=== PATIENT | female | born 1950 | race Caucasian/White ===

== ENCOUNTER 2018-05-09 07:03 | Day surgery (SDC) | payer MEDICARE, OTHER ==
[~2018-05-09] VITALS: Ht 170.2 cm; Wt 90.7 kg
[~2018-05-09 07:03] MED LIST: ASPI-999 PO; ATEN100T PO; CANA1TAB4 PO; DICY10CA12 PO; DIPH-757 PO; FENO145T37 PO; FISH1CAP15 PO; NIAC500T24 PO; OMEP20TA7 PO; POTA-51 PO; SIMV40TA4 PO; VNL75T PO
--- OUTSIDE RECORDS SUMMARY | 2018-05-09 07:09 | XMS REPORT ---
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 Name Role Phone Tre Churchill PCP Tre Churchill PreferredProvider Allergies and Adverse Reactions Name Reaction Notes NO KNOWN DRUG ALLERGIES Plan of Treatment Planned Activity Comments Planned Date Planned Time Plan/Goal Diagnostic Mammogram 01/01/2018 12:00 AM Medications Active Name Start Date Estimated Completion Date SIG Comments aspirin 325 mg oral tablet take 1 tablet by oral route daily Niacin Flush Free 750 mg oral capsule 04/03/2013 take 1 capsule by oral route daily potassium chloride 20 mEq oral tablet,ER particles/crystals 11/18/2013 TAKE 1 TABLET BY MOUTH ONCE A DAY Nexium 40 mg oral capsule,delayed release(DR/EC) 02/14/2014 TAKE 1 CAPSULE BY MOUTH ONCE A DAY atenolol 100 mg oral tablet 03/03/2014 TAKE 1 TABLET BY MOUTH ONCE A DAY simvastatin 40 mg oral tablet 04/06/2014 TAKE 1 TABLET BY MOUTH ONCE A DAY IN THE EVENING potassium chloride 20 mEq oral tablet,ER particles/crystals 06/16/2014 TAKE 1 TABLET BY MOUTH ONCE A DAY gabapentin 600 mg oral tablet 08/03/2014 TAKE 1 TABLET BY MOUTH TWO TIMES A DAY OneTouch Ultra Test miscellaneous strip 10/20/2014 Test glucose once a day Dx:250.00 OneTouch Ultra System Kit miscellaneous kit 10/20/2014 Test glucose once a day Dx:250.00 venlafaxine 75 mg oral capsule,extended release 24hr 11/09/2014 TAKE 1 CAPSULE BY MOUTH ONCE A DAY Jentadueto 2.5-850 mg oral tablet 12/10/2014 take 1 tablet by oral route 2 times per day with meals potassium chloride 20 mEq oral tablet,ER particles/crystals 01/26/2015 TAKE ONE TABLET BY MOUTH ONCE DAILY atenolol 100 mg oral tablet 04/23/2015 TAKE ONE TABLET BY MOUTH ONCE DAILY gabapentin 600 mg oral tablet 04/29/2015 TAKE ONE TABLET BY MOUTH THREE TIMES DAILY simvastatin 40 mg oral tablet 05/04/2015 TAKE ONE TABLET BY MOUTH ONCE DAILY IN THE EVENING venlafaxine 75 mg oral capsule,extended release 24hr 05/13/2015 TAKE ONE CAPSULE BY MOUTH ONCE DAILY Jentadueto 2.5-850 mg oral tablet 06/29/2015 TAKE ONE TABLET BY MOUTH TWICE DAILY WITH MEALS simvastatin 40 mg oral tablet 08/01/2015 TAKE ONE TABLET BY MOUTH ONCE DAILY IN THE EVENING Klor-Con M20 20 mEq oral tablet,ER particles/crystals 08/01/2015 TAKE ONE TABLET BY MOUTH ONCE DAILY venlafaxine 75 mg oral capsule,extended release 24hr 08/12/2015 TAKE ONE CAPSULE BY MOUTH ONCE DAILY Klor-Con M20 20 mEq oral tablet,ER particles/crystals 09/05/2015 TAKE ONE TABLET BY MOUTH ONCE DAILY simvastatin 40 mg oral tablet 09/05/2015 TAKE ONE TABLET BY MOUTH ONCE DAILY IN THE EVENING simvastatin 40 mg oral tablet 11/08/2015 TAKE ONE TABLET BY MOUTH ONCE DAILY IN THE EVENING Klor-Con M20 20 mEq oral tablet,ER particles/crystals 11/08/2015 TAKE ONE TABLET BY MOUTH ONCE DAILY venlafaxine 75 mg oral capsule,extended release 24hr 11/21/2015 TAKE ONE CAPSULE BY MOUTH ONCE DAILY Jentadueto 2.5-850 mg oral tablet 01/11/2016 TAKE ONE TABLET BY MOUTH TWICE DAILY WITH MEALS nortriptyline 25 mg oral capsule 01/18/2016 take 1 capsule (25 mg) by oral route at bedtime simvastatin 40 mg oral tablet 05/08/2016 TAKE ONE TABLET BY MOUTH ONCE DAILY IN THE EVENING Klor-Con M20 20 mEq oral tablet,ER particles/crystals 05/08/2016 TAKE ONE TABLET BY MOUTH ONCE DAILY nortriptyline 25 mg oral capsule 07/06/2016 TAKE ONE CAPSULE BY MOUTH AT BEDTIME Jentadueto 2.5-850 mg oral tablet 07/20/2016 TAKE ONE TABLET BY MOUTH TWICE DAILY WITH MEALS montelukast 10 mg oral tablet 02/27/2017 take 1 tablet (10 mg) by oral route once daily in the evening dicyclomine 10 mg oral capsule 02/27/2017 take 1 capsule by oral route 2 times a day as needed fenofibrate 150 mg oral capsule 05/17/2017 05/12/2018 take 1 capsule (150 mg) by oral route once daily with food for 90 days atenolol 100 mg oral tablet 07/03/2017 06/28/2018 TAKE ONE TABLET BY MOUTH ONCE DAILY nortriptyline 25 mg oral capsule 07/16/2017 01/07/2019 TAKE ONE CAPSULE BY MOUTH AT BEDTIME REHTOUCH ULTRA BLUE TEST STP 07/23/2017 03/15/2019 TEST GLUCOSE ONCE A DAY OneTouch Ultra Test miscellaneous strip 07/24/2017 Test glucose once a day Dx:e11.9 Fish Oil 360-1,200 mg oral capsule 01/04/2018 take 2 capsules by oral route 2 times a day Name Start Date Expiration Date SIG Comments Levaquin 750 mg oral tablet 02/04/2010 02/09/2010 take 1 po QD ketoconazole 2 % topical cream 08/18/2010 09/15/2010 apply to the affected area(s) by topical route once daily for 2 weeks Zithromax Z-Ramon 250 mg oral tablet 06/26/2011 07/01/2011 take 2 tablets (500 mg) by oral route once daily for 1 day then 1 tablet (250 mg) by oral route once daily for 4 days Zithromax Z-Ramon 250 mg oral tablet 08/14/2011 08/19/2011 take 2 tablets ( 500 mg) by oral route once daily for 1 day then 1 tablet (250 mg) by oral route once daily for 4 days simvastatin 40 mg oral tablet 03/26/2012 04/25/2012 TAKE 1 TABLET BY MOUTH ONCE A DAY IN THE EVENING Effexor XR 75 mg oral capsule,extended release 24hr 07/19/2012 08/18/2012 TAKE 1 CAPSULE BY MOUTH ONCE A DAY generic on list atenolol 100 mg oral tablet 02/17/2013 03/19/2013 TAKE 1 TABLET BY MOUTH ONCE A DAY Zithromax Z-Ramon 250 mg oral tablet 03/21/2013 03/26/2013 take 2 tablets (500 mg) by oral route once daily for 1 day then 1 tablet (250 mg) by oral route once daily for 4 days potassium chloride 20 mEq oral tablet,ER particles/crystals 04/12/20132012 TAKE 1 TABLET BY MOUTH ONCE A DAY gabapentin 600 mg oral tablet 06/17/2013 12/14/2013 take 1 tablet by oral route 2 times a day for 30 days metformin 500 mg oral tablet 07/10/2013 01/06/2014 take 2 tablets by oral route 2 times a day for 30 days Nexium 40 mg oral capsule,delayed release(DR/EC) 07/15/2013 08/14/2013 TAKE 1 CAPSULE BY MOUTH ONCE A DAY Trilipix 135 mg oral capsule,delayed release(DR/EC) 11/27/2013 05/26/2014 TAKE 1 CAPSULE BY MOUTH ONCE A DAY Accu-Chek Sita miscellaneous strip 05/14/2014 09/11/2014 Test glucose twice a week Dx: 250.00 gabapentin 600 mg oral tablet 10/20/2014 04/18/2015 take 1 tablet (600 mg) by oral route 3 times per day for 30 days fenofibrate 160 mg oral tablet 12/01/2014 11/26/2015 take 1 tablet (160 mg) by oral route once daily for 90 days gemfibrozil 600 mg oral tablet 02/10/2016 08/08/2016 take 1 tablet (600 mg) by oral route 2 times per day 30 minutes before morning and evening meal for 30 days fluconazole 100 mg oral tablet 11/22/2016 12/02/2016 take 1 tablet (100 mg) by oral route once daily for 5 days montelukast 10 mg oral tablet 07/01/2017 10/29/2017 TAKE ONE TABLET BY MOUTH ONCE DAILY IN THE EVENING dicyclomine 10 mg oral capsule 09/09/2017 09/09/2017 TAKE ONE CAPSULE BY MOUTH TWICE DAILY NEEDED Augmentin 500-125 mg oral tablet 09/09/2017 09/19/2017 take 1 tablet by oral route every 12 hours for 10 days Invokamet 150-1,000 mg oral tablet 09/16/2017 09/16/2017 TAKE ONE TABLET BY MOUTH TWICE DAILY WITH MEALS Klor-Con M20 20 mEq oral tablet,ER particles/crystals 11/12/2017 11/12/2017 TAKE ONE TABLET BY MOUTH ONCE DAILY venlafaxine 75 mg oral tablet 11/19/2017 11/19/2017 TAKE ONE TABLET BY MOUTH TWICE DAILY WITH FOOD simvastatin 40 mg oral tablet 11/19/2017 11/19/2017 TAKE ONE TABLET BY MOUTH ONCE DAILY IN THE EVENING Discontinued Name Start Date Discontinued Date SIG Comments Phenergan-Codeine 6.25-10 mg/5 mL oral syrup 02/04/2010 06/07/2010 take 5 milliliters by oral route every 6 hours as needed, not to exceed 30 mL in 24 hours loratadine 10 mg oral tablet 07/13/2011 take 1 tablet (10 mg) by oral route once daily Effexor 75 mg oral tablet 06/07/2010 10/03/2010 take 1 tablet by oral route daily Changed to sustained release formula metformin 500 mg oral tablet 06/30/2010 10/03/2010 take 1 tablet (500 mg) by oral route 2 times per day with morning and evening meals for 30 days Plan trial of diet modifications clonidine HCl 0.1 mg oral tablet 08/17/2010 11/07/2010 TAKE 1 TABLET BY MOUTH ONCE A DAY discontinued by Dr. Jeffries gemfibrozil 600 mg oral tablet 08/29/2010 10/03/2010 TAKE 1 TABLET BY MOUTH TWO TIMES A DAY 30 MIN. BEFORE MORNING & EVENING MEAL meclizine 12.5 mg oral tablet 09/13/2010 10/03/2010 take 1-2 tablets by oral route 3 times a day Medrol (Ramon) 4 mg oral tablets,dose pack 09/13/2010 10/03/2010 take as directed Zocor 40 mg oral tablet 09/23/2010 03/03/2011 take 1 tablet (40 mg) by oral route once daily in the evening for 30 days Duplicare medication on list Black Cohosh Oral 07/13/2011 one daily no longer taking Fish Oil 1,000 mg oral capsule 10/03/2010 03/26/2012 take 2 capsules by oral route 2 times a day Augmentin 875-125 mg oral tablet 11/07/2010 03/16/2011 take 1 tablet by oral route every 12 hours ibuprofen 600 mg oral tablet 11/07/2010 06/27/2012 take 1 tablet by oral route once a day (at bedtime) as needed benzoyl peroxide 10 % topical cleanser 04/18/2011 04/03/2013 wash the affected area(s) by topical route 2 times per day Medrol (Ramon) 4 mg oral tablets,dose pack 06/26/2011 07/13/2011 take as directed Nasonex 50 mcg/actuation nasal spray,non-aerosol 07/13/2011 06/27/2012 spray 2 sprays in each nostril by intranasal route once daily niacin 500 mg oral tablet extended release 24 hr 08/16/2011 03/26/2012 take 2 tablets by oral route once a day (in the evening) not refilled, dose increased Zofran ODT 4 mg oral tablet,disintegrating 01/23/2012 06/27/2012 dissolve 1- 2 tablets by oral route 3 times a day as needed nystatin-triamcinolone 100,000-0.1 unit/g-% topical cream 03/26/20122011 apply to affected area(s) by topical route 2 times a day Nasonex 50 mcg/actuation nasal spray,non-aerosol 07/01/2012 06/11/2014 spray 2 sprays in each nostril by intranasal route once daily Trilipix 135 mg oral capsule,delayed release(DR/EC) 09/20/2012 04/03/2013 TAKE 1 CAPSULE BY MOUTH ONCE A DAY nystatin-triamcinolone 100,000-0.1 unit/g-% topical cream 04/03/20132014 apply to the affected area(s) by topical route 2 times per day in the morning and evening Bydureon 2 mg subcutaneous suspension,extended rel recon 06/17/2013 07/10/2013 inject 2 mg once by subcutaneous route every 7 days Increased Metformin to 2000 mg a day Lovaza 1 gram oral capsule 07/10/2013 02/10/2014 take 2 capsules by oral route daily for 30 days "too expensive" lisinopril-hydrochlorothiazide 20-25 mg oral tablet 09/09/2013 02/27/2017 TAKE 1 TABLET BY MOUTH ONCE A DAY Pt states the medication made her Dizzy Trilipix 135 mg oral capsule,delayed release(DR/EC) 06/02/2014 12/01/2014 TAKE 1 CAPSULE BY MOUTH ONCE A DAY Invokana 100 mg oral tablet 06/10/2015 11/11/2015 TAKE ONE TABLET BY MOUTH ONCE DAILY BEFORE THE FIRST MEAL OF THE DAY lisinopril-hydrochlorothiazide 20-25 mg oral tablet 07/28/2015 TAKE 1 TABLET BY MOUTH ONCE A DAY gabapentin 600 mg oral tablet 10/25/2015 01/18/2016 TAKE ONE TABLET BY MOUTH THREE TIMES DAILY gabapentin 600 mg oral tablet 10/25/2015 01/18/2016 TAKE ONE TABLET BY MOUTH THREE TIMES DAILY $42.42 co-pay Farxiga 10 mg oral tablet 11/11/2015 12/10/2015 take 1 tablet (10 mg) by oral route once daily in the morning for 30 days fenofibrate 160 mg oral tablet 12/09/2015 01/18/2016 TAKE ONE TABLET BY MOUTH ONCE DAILY fenofibrate 160 mg oral tablet 12/09/2015 01/18/2016 TAKE ONE TABLET BY MOUTH ONCE DAILY $44 co-pay Jardiance 10 mg oral tablet 12/10/2015 01/18/2016 take 1 tablet (10 mg) by oral route once daily in the morning for 30 days Never filled rx Tricor 145 mg oral tablet 01/18/2016 02/10/2016 take 1 tablet (145 mg) by oral route once daily for 30 days Tricor 145 mg oral tablet 01/18/2016 02/10/2016 take 1 tablet (145 mg) by oral route once daily for 30 days Too expensive venlafaxine 75 mg oral capsule,extended release 24hr 06/05/2016 04/12/2017 TAKE ONE CAPSULE BY MOUTH ONCE DAILY venlafaxine 75 mg oral capsule,extended release 24hr 06/05/2016 04/12/2017 TAKE ONE CAPSULE BY MOUTH ONCE DAILY Switched to Immediate Release likely due to coverage problem gemfibrozil 600 mg oral tablet 08/09/2016 05/17/2017 TAKE ONE TABLET BY MOUTH 30 MINUTES BEFORE MORNING MEAL AND ONE TABLET 30 MINUTES BEFORE EVENING MEAL gemfibrozil 600 mg oral tablet 08/09/2016 05/17/2017 TAKE ONE TABLET BY MOUTH 30 MINUTES BEFORE MORNING MEAL AND ONE TABLET 30 MINUTES BEFORE EVENING MEAL Contraindicated with Simvastatin Invokana 100 mg oral tablet 08/29/2016 10/18/2016 take 1 tablet (100 mg) by oral route once daily before the first meal of the day for 30 days Invokana 100 mg oral tablet 08/29/2016 10/18/2016 take 1 tablet (100 mg) by oral route once daily before the first meal of the day for 30 days Vázquez ortega of $400 toward Medicare jonah mendez. Wants to try Janumet alone first. Jentadueto 2.5-850 mg oral tablet 09/25/2016 10/18/2016 TAKE ONE TABLET BY MOUTH TWICE DAILY WITH MEALS lisinopril-hydrochlorothiazide 20-25 mg oral tablet 10/08/2016 01/01/2018 TAKE ONE TABLET BY MOUTH ONCE DAILY nystatin 100,000 unit/gram topical cream 10/18/2016 11/22/2016 apply to the affected area(s) by topical route 3 times per day Janumet XR 50-1,000 mg oral tablet, ER multiphase 24 hr 10/18/2016 02/27/2017 take 2 tablets by oral route once daily with evening meal, swallowing whole. Problem List Description Status Onset Anemia Active Hypertension Active Menopausal Syndrome Active GERD Active Peripheral neuropathy Active 03/19/2011 Depression Active Hyperlipidemia Active Sleep Apnea, Obstructive Active Diabetes Mellitus, Type II Active Vital Signs Date Time BP-Sys(mm[Hg] BP-Barbara(mm[Hg]) HR(bpm) RR(rpm) Temp WT HT HC BMI BSA BMI Percentile O2 Sat(%) 01/01/2018 1:41:00 PM 130 mmHg 81 mmHg 104 bpm 18 rpm 97.4 F 197 lbs 67 in 30.85 kg/m2 2.06 m2 98 % 09/09/2017 1:55:00 PM 138 mmHg 64 mmHg 80 bpm 16 rpm 99.1 F 198 lbs 67 in 31.0109 kg/m 2.0605 m 94 % 02/27/2017 10:50:00 AM 128 mmHg 68 mmHg 80 bpm 18 rpm 97.2 F 190.5 lbs 67 in 29.84 kg/m2 2.02 m2 94 % 10/18/2016 8:02:00 AM 118 mmHg 68 mmHg 81 bpm 18 rpm 97.5 F 198 lbs 67 in 31.0109 kg/m 2.0605 m 100 % 01/18/2016 4:01:00 PM 122 mmHg 72 mmHg 83 bpm 18 rpm 98.4 F 206 lbs 67 in 32.26 kg/m2 2.10 m2 96 % 10/14/2015 8:32:00 AM 132 mmHg 70 mmHg 68 bpm 20 rpm 98.5 F 205 lbs 67 in 32.1072 kg/m 2.0966 m 98 % 10/20/2014 8:46:00 AM 136 mmHg 70 mmHg 68 bpm 16 rpm 98.3 F 212 lbs 67 in 33.20 kg/m2 2.13 m2 100 % 06/11/2014 8:54:00 AM 128 mmHg 70 mmHg 76 bpm 20 rpm 98.5 F 213 lbs 67 in 33.3602 kg/m 2.1371 m 100 % 05/29/2014 5:03:00 PM 132 mmHg 66 mmHg 73 bpm 18 rpm 98.4 F 210.25 lbs 67 in 32.93 kg/m2 2.12 m2 99 % 04/09/2014 3:26:00 PM 140 mmHg 78 mmHg 70 bpm 18 rpm 97.9 F 212.4 lbs 67 in 33.2662 kg/m 2.1341 m 97 % 02/10/2014 8:14:00 AM 132 mmHg 78 mmHg 79 bpm 20 rpm 98 F 213 lbs 67 in 33.36 kg/m2 2.14 m2 98 % 07/10/2013 8:23:00 AM 138 mmHg 62 mmHg 70 bpm 20 rpm 98.6 F 220 lbs 67 in 34.4565 kg/m 2.1719 m 96 % 06/17/2013 10:06:00 AM 128 mmHg 70 mmHg 60 bpm 18 rpm 98.1 F 217 lbs 67 in 33.99 kg/m2 2.16 m2 05/29/2013 10:50:00 AM 130 mmHg 72 mmHg 70 bpm 18 rpm 98.1 F 214 lbs 67 in 33.5168 kg/m 2.1421 m 04/03/2013 9:53:00 AM 134 mmHg 70 mmHg 78 bpm 20 rpm 98.1 F 215 lbs 67 in 33.67 kg/m2 2.15 m2 06/27/2012 9:39:00 AM 126 mmHg 62 mmHg 70 bpm 18 rpm 98 F 218 lbs 67 in 34.1433 kg/m 2.162 m 03/26/2012 10:17:00 AM 136 mmHg 70 mmHg 62 bpm 18 rpm 98.3 F 213 lbs 67 in 33.36 kg/m2 2.14 m2 08/10/2011 8:05:00 AM 130 mmHg 62 mmHg 78 bpm 18 rpm 98.2 F 213 lbs 67 in 33.3602 kg/m 2.1371 m 07/13/2011 2:22:00 PM 118 mmHg 60 mmHg 07/13/2011 2:22:00 PM 108 mmHg 50 mmHg 07/13/2011 2:22:00 PM 100 mmHg 50 mmHg 07/13/2011 2:20:00 PM 120 mmHg 60 mmHg 64 bpm 18 rpm 97 F 216 lbs 67 in 33.83 kg/m 2.15 m2 06/26/2011 3:38:00 PM 138 mmHg 80 mmHg 84 bpm 98.1 F 215 lbs 04/05/2011 2:38:00 PM 130 mmHg 70 mmHg 88 bpm 18 rpm 98 F 214 lbs 03/16/2011 3:50:00 PM 136 mmHg 72 mmHg 74 bpm 16 rpm 99 F 213 lbs 67 in 33.36 kg/m2 2.1371 m 11/07/2010 3:44:00 PM 132 mmHg 72 mmHg 74 bpm 18 rpm 98.9 F 208 lbs 10/03/2010 3:36:00 PM 144 mmHg 80 mmHg 74 bpm 18 rpm 97.6 F 212 lbs 09/13/2010 8:18:00 AM 140 mmHg 78 mmHg 80 bpm 16 rpm 97.7 F 211.125 lbs 09/13/2010 8:18:00 AM 160 mmHg 84 mmHg 09/13/2010 8:18:00 AM 150 mmHg 80 mmHg 09/13/2010 8:18:00 AM 150 mmHg 76 mmHg 08/02/2010 9:36:00 AM 132 mmHg 78 mmHg 64 bpm 16 rpm 98.2 F 210.375 lbs 06/30/2010 9:26:00 AM 140 mmHg 72 mmHg 76 bpm 20 rpm 98.1 F 207.5 lbs 06/07/2010 8:23:00 AM 136 mmHg 66 mmHg 68 bpm 20 rpm 97.8 F 210 lbs 02/04/2010 8:22:00 AM 148 mmHg 80 mmHg 80 bpm 20 rpm 98.3 F 210 lbs 01/17/2010 3:04:00 PM 158 mmHg 80 mmHg 91 bpm 20 rpm 98.2 F 211.25 lbs 67 in 33.09 kg/m2 2.1283 m 96 % 10/15/2009 3:29:00 PM 148 mmHg 78 mmHg 76 bpm 16 rpm 97.3 F 212.25 lbs 67 in 33.2427 kg/m 2.13 m2 97 % Social History Name Description Comments Denies illicit substance abuse denies alcohol use Attended some college switch [employer] paperboard boxes Active but no 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 Tobacco Former smoker stopped 05/23/10 History of Procedures Date Ordered Description Order Status 09/21/2015 12:00 AM GLYCOSYLATED HEMOGLOBIN TEST Reviewed 09/21/2015 12:00 AM LIPID PANEL Reviewed 09/21/2015 12:00 AM COMPLETE CBC W/AUTO DIFF WBC Reviewed 09/21/2015 12:00 AM COMPREHEN METABOLIC PANEL Reviewed 09/21/2015 12:00 AM MICROALBUMIN QUANTITATIVE Reviewed 08/10/2011 12:00 AM ELECTROCARDIOGRAM COMPLETE Reviewed 08/10/2011 12:00 AM COMPREHEN METABOLIC PANEL Reviewed 08/10/2011 12:00 AM LIPID PANEL Reviewed 08/10/2011 12:00 AM GLYCOSYLATED HEMOGLOBIN TEST Reviewed 08/10/2011 12:00 AM MICROALBUMIN SEMIQUANT Reviewed 10/09/2016 12:00 AM GLYCOSYLATED HEMOGLOBIN TEST Reviewed 10/09/2016 12:00 AM LIPID PANEL Reviewed 10/09/2016 12:00 AM COMPLETE CBC W/AUTO DIFF WBC Reviewed 10/09/2016 12:00 AM COMPREHEN METABOLIC PANEL Reviewed 10/09/2016 12:00 AM MICROALBUMIN QUANTITATIVE Reviewed 10/09/2016 12:00 AM VITAMIN B-12 Reviewed 03/12/2012 12:00 AM GLYCOSYLATED HEMOGLOBIN TEST Reviewed 03/12/2012 12:00 AM LIPID PANEL Reviewed 03/12/2012 12:00 AM COMPLETE CBC W/AUTO DIFF WBC Reviewed 03/12/2012 12:00 AM COMPREHEN METABOLIC PANEL Reviewed 01/17/2010 12:00 AM ELECTROCARDIOGRAM COMPLETE Reviewed 01/03/2018 12:00 AM COMPLETE CBC W/AUTO DIFF WBC Reviewed 01/03/2018 12:00 AM COMPREHEN METABOLIC PANEL Reviewed 01/03/2018 12:00 AM GLYCOSYLATED HEMOGLOBIN TEST Reviewed 01/03/2018 12:00 AM VITAMIN B-12 Reviewed 01/03/2018 12:00 AM ALBUMIN URINE MICROALBUMIN QUANTIATIVE Reviewed 01/03/2018 12:00 AM LIPID PANEL Reviewed 01/01/2018 12:00 AM Breast ultrasound Reviewed 01/11/2018 12:00 AM BX BREAST 1ST LESION US IMAG Reviewed 03/27/2013 12:00 AM GLYCOSYLATED HEMOGLOBIN TEST Reviewed 03/27/2013 12:00 AM LIPID PANEL Reviewed 03/27/2013 12:00 AM COMPLETE CBC W/AUTO DIFF WBC Reviewed 03/27/2013 12:00 AM COMPREHEN METABOLIC PANEL Reviewed 10/15/2009 12:00 AM THER/PROPH/DIAG INJ SC/IM Reviewed 10/15/2009 12:00 AM Kenalog 40 Mg Im-[facility] [place]#[id number] Reviewed 02/03/2014 12:00 AM GLYCOSYLATED HEMOGLOBIN TEST Reviewed 02/03/2014 12:00 AM LIPID PANEL Reviewed 02/03/2014 12:00 AM COMPLETE CBC W/AUTO DIFF WBC Reviewed 02/03/2014 12:00 AM COMPREHEN METABOLIC PANEL Reviewed 08/12/2014 12:00 AM LIPID PANEL Reviewed 04/09/2014 12:00 AM COMPREHEN METABOLIC PANEL Reviewed 04/09/2014 12:00 AM COMPLETE CBC W/AUTO DIFF WBC Reviewed 04/09/2014 12:00 AM URINALYSIS AUTO W/SCOPE Reviewed 06/07/2010 12:00 AM COMPREHEN METABOLIC PANEL Reviewed 06/07/2010 12:00 AM LIPID PANEL Reviewed 06/07/2010 12:00 AM COMPLETE CBC W/AUTO DIFF WBC Reviewed 06/22/2010 12:00 AM GLUCOSE TOLERANCE TEST (GTT) Reviewed 06/22/2010 12:00 AM GLYCOSYLATED HEMOGLOBIN TEST Reviewed 06/22/2010 12:00 AM LIPID PANEL Reviewed 09/13/2010 12:00 AM COMPREHEN METABOLIC PANEL Reviewed 09/13/2010 12:00 AM LIPID PANEL Reviewed 09/13/2010 12:00 AM GLYCOSYLATED HEMOGLOBIN TEST Reviewed 09/23/2010 12:00 AM Blood Pressure Check-no charge Reviewed 10/18/2010 12:00 AM SLEEP STUDY ATTENDED Reviewed 11/07/2010 12:00 AM VITAMIN B-12 Reviewed 11/10/2010 12:00 AM SLEEP STUDY ATTENDED Reviewed 10/20/2014 12:00 AM COMPREHEN METABOLIC PANEL Reviewed 10/20/2014 12:00 AM LIPID PANEL Reviewed 10/20/2014 12:00 AM GLYCOSYLATED HEMOGLOBIN TEST Reviewed 10/20/2014 12:00 AM COMPLETE CBC W/AUTO DIFF WBC Reviewed 03/19/2011 12:00 AM GLYCOSYLATED HEMOGLOBIN TEST Reviewed 03/19/2011 12:00 AM MICROALBUMIN QUANTITATIVE Reviewed 03/16/2011 12:00 AM COMPREHEN METABOLIC PANEL Reviewed 03/16/2011 12:00 AM LIPID PANEL Reviewed 03/16/2011 12:00 AM GLYCOSYLATED HEMOGLOBIN TEST Reviewed 03/16/2011 12:00 AM MICROALBUMIN SEMIQUANT Reviewed 04/05/2011 12:00 AM BIOPSY SKIN LESION Reviewed 04/05/2011 12:00 AM BIOPSY SKIN ADD-ON Reviewed Results Summary Date and Description Results 06/27/2010 8:20 AM GLYCOHEMOGLOBIN A1C 6.30 %RECHECKED A1C AND FBS 09/13/2010 9:16 AM TRIGLYCERIDES 308.0 mg/dLCHOLESTEROL 184.0 mg/dLHDL 27.0 mg/ dLTOT CHOL/HDL 6.8 LDL (CALC) 95.0 mg/dLGLYCOHEMOGLOBIN A1C 5.80 %GLUCOSE 123.0 mg/dLSODIUM 139.0 mmol/LPOTASSIUM 4.0 mmol/LCHLORIDE 103.0 mmol/LCO2 22.0 mmol/ LBUN 17.0 mg/dLCREATININE 0.80 mg/dLSGOT/AST 34.0 IU/LSGPT/ALT 32.0 IU/LALK PHOS 89.0 IU/LTOTAL PROTEIN 7.20 g/dLALBUMIN 4.80 g/dLTOTAL BILI 0.50 mg/ dLCALCIUM 10.0 mg/dLAGE 60 GFR NonAA 73 GFR AA 88 eGFR >60 mL/min/1.73 m2eGFR AA * >60 11/07/2010 4:27 PM VITAMIN B12 570.0 pg/mL 01/03/2018 10:20 AM TRIGLYCERIDES 239.0 mg/dLCHOLESTEROL 154.0 mg/dLHDL 28.0 mg/ dLTOT CHOL/HDL 5.5 LDL (CALC) 78.0 mg/dLWBC 7.7 RBC 5.23 HGB 12.40 g/dLHCT 41.40 %MCV 79.0 fLMCH 23.70 pgMCHC 30.0 g/dLRDW SD 49 RDW CV 17.50 %MPV 9.50 fLPLT 286 NRBC# 0.00 NRBC% 0.0 %NEUT 51.90 %%LYMP 34.0 %%MONO 9.10 %%EOS 3.10 %% BASO 1.40 %#NEUT 3.99 #LYMP 2.62 #MONO 0.70 #EOS 0.24 #BASO 0.11 MANUAL DIFF NOT IND GLUCOSE 136.0 mg/dLSODIUM 141.0 mmol/LPOTASSIUM 4.0 mmol/LCHLORIDE 106.0 mmol/LCO2 24.0 mmol/LBUN 17.0 mg/dLCREATININE 0.80 mg/dLSGOT/AST 35.0 IU/ LSGPT/ALT 30.0 IU/LALK PHOS 118.0 IU/LTOTAL PROTEIN 7.40 g/dLALBUMIN 4.30 g/ dLTOTAL BILI 0.60 mg/dLCALCIUM 9.90 mg/dLAGE 67 GFR NonAA 72 GFR AA 87 eGFR >60 mL/min/1.73meGFR AA* >60 MICROALBUMIN UR 10.0 ug/mLVITAMIN B12 354.0 pg/mLHGB A1C 6.20 %Est Avg Glucose 131.2 mg/dL History Of Immunizations Name Date Admin Mfg Name Mfg Code Trade Name Lot# Route Inj Vis Given Vis Pub CVX Tdap 01/17/2016 Not Entered NE ADACEL Not Entered Not Entered 201511/05/2018 115 Pneumococcal 01/26/2016 Not Entered NE Pneumovax 23 Not Entered Not Entered 01/26/2016 11/05/2018 33 Influenza 07/20/2016 Not Entered NE Fluzone High-Dose Intramuscular Left Arm 11/05/2018 11/05/2018 141 Pneumococcal 02/01/2017 Not Entered NE Prevnar 13 Not Entered Not Entered 11/05/2018 11/05/2018 133 Influenza 07/24/2017 Not Entered NE Fluzone High-Dose Not Entered Not Entered 11/05/2018 11/05/2018 135 History of Past Illness Name Date of Onset Comments Cough Oct 15 2009 4:00PM Acute Pharyngitis Oct 15 2009 4:00PM Pneumonia Oct 15 2009 4:00PM Chronic Obstructive Pulmonary Disease, Decompensated Oct 15 2009 4:00PM Hypertension Anemia Menopausal Syndrome GERD Preoperative Examination Jan 17 2010 2:40PM Bronchitis, Acute Feb 04 2010 8:26AM Sleep Apnea, Obstructive moderate Peripheral neuropathy 03/19/2011 Depression Hyperlipidemia Diabetes Mellitus, Type II tests 1-2 times per week Benign Essential Hypertension Jun 07 2010 8:26AM Hyperlipidemia Jun 07 2010 8:26AM Gastroesophageal Reflux Jun 07 2010 8:26AM Anemia Jun 07 2010 8:26AM Depressive Disorder Jun 07 2010 8:26AM Menopausal Syndrome Jun 07 2010 8:26AM Hyperglycemia Jun 22 2010 11:11AM Hyperlipidemia, unspecified Jun 22 2010 11:11AM Diabetes Mellitus, Type II Jun 30 2010 9:27AM Hyperlipidemia, unspecified Jun 30 2010 9:27AM Hypertension, Benign Essential Jun 30 2010 9:27AM Candidiasis Of Skin Aug 02 2010 9:39AM Benign paroxysmal positional vertigo Sep 13 2010 8:24AM Hyperlipidemia, Mixed Sep 13 2010 8:24AM Hyperglycemia Sep 13 2010 8:24AM Hypertension, Benign Essential Sep 23 2010 3:41PM Hyperlipidemia Oct 03 2010 3:37PM Diabetes Mellitus, Type II Oct 03 2010 3:37PM Vertigo Oct 03 2010 3:37PM Sleep disturbance Oct 03 2010 3:37PM Peripheral Neuropathy Nov 07 2010 3:44PM Vertigo Nov 07 2010 3:44PM Sleep disturbance Nov 07 2010 3:44PM Sinusitis, Chronic Nov 07 2010 3:44PM Pain in foot, Bilateral Nov 07 2010 3:44PM Diabetes Mellitus, Type II Mar 16 2011 3:50PM Hypertension Mar 16 2011 3:50PM Peripheral Neuropathy Mar 16 2011 3:50PM 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 05 2011 2:39PM Upper Respiratory Infections Jun 26 2011 3:38PM Eustachian Tube Dysfunction Jun 26 2011 3:38PM Diabetes Mellitus, Type II Jul 13 2011 2:22PM Eustachian Tube Dysfunction, Bilateral Jul 13 2011 2:22PM Diabetes Mellitus, Type II Aug 10 2011 8:02AM Essential Hypertension Aug 10 2011 8:02AM Hyperlipidemia, Mixed Aug 10 2011 8:02AM Hyperlipidemia Mar 12 2012 11:33AM Anemia Mar 12 2012 11:33AM Hypertension Mar 12 2012 11:33AM Diabetes Mellitus, Type II Mar 12 2012 11:33AM Diabetes Mellitus, Type II Mar 26 2012 10:20AM Essential Hypertension Mar 26 2012 10:20AM Hyperlipidemia, Mixed Mar 26 2012 10:20AM Tinea Pedis Mar 26 2012 10:20AM Diabetes Mellitus, Type II Jun 27 2012 9:41AM Essential Hypertension Jun 27 2012 9:41AM Hyperlipidemia, Mixed Jun 27 2012 9:41AM Neuropathy, Peripheral Jun 27 2012 9:41AM Hyperlipidemia Mar 27 2013 11:21AM Anemia Mar 27 2013 11:21AM Hypertension Mar 27 2013 11:21AM Diabetes Mellitus, Type II Mar 27 2013 11:21AM Diabetes Mellitus, Type II Apr 03 2013 9:55AM Essential Hypertension Apr 03 2013 9:55AM Hyperlipidemia, Mixed Apr 03 2013 9:55AM Neuropathy, Peripheral Apr 03 2013 9:55AM Diabetes Mellitus, Type II May 29 2013 10:53AM Polyneuropathy in diabetes May 29 2013 10:53AM Diabetes Mellitus, Type II Jun 17 2013 10:09AM Diabetes Mellitus, Type II Jul 10 2013 8:23AM Anemia Jul 10 2013 8:23AM Hypertension Jul 10 2013 8:23AM Hyperlipidemia Jul 10 2013 8:23AM Insect Bite without infection Jul 10 2013 8:23AM Hyperlipidemia Feb 03 2014 5:01PM Anemia Feb 03 2014 5:01PM Hypertension Feb 03 2014 5:01PM Diabetes Mellitus, Type II Feb 03 2014 5:01PM Diabetes Mellitus, Type II Feb 10 2014 8:16AM Anemia Feb 10 2014 8:16AM Hypertension Feb 10 2014 8:16AM Hyperlipidemia Feb 10 2014 8:16AM Hypertension Apr 09 2014 3:28PM Diabetes Mellitus, Type II Apr 09 2014 3:28PM Anemia Apr 09 2014 3:28PM Altered mental status Apr 09 2014 3:28PM 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 5: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 Diabetes Mellitus, Type II Jun 11 2014 8:57AM Anemia Oct 20 2014 8:48AM Hypertension Oct 20 2014 8:48AM Hyperlipidemia Oct 20 2014 8:48AM Diabetes Mellitus, Type II Oct 20 2014 8:48AM Hyperlipidemia Sep 21 2015 11:50AM Anemia Sep 21 2015 11:50AM Hypertension Sep 21 2015 11:50AM Diabetes Mellitus, Type II Sep 21 2015 11:50AM Anemia Oct 14 2015 8:34AM Hypertension Oct 14 2015 8:34AM Hyperlipidemia Oct 14 2015 8:34AM Diabetes Mellitus, Type II Oct 14 2015 8:34AM Peripheral neuropathy Jan 18 2016 4:06PM Anemia Jan 18 2016 4:06PM Hypertension Jan 18 2016 4:06PM Depression Jan 18 2016 4:06PM Hyperlipidemia Jan 18 2016 4:06PM Diabetes Mellitus, Type II Jan 18 2016 4:06PM Hyperlipidemia Oct 09 2016 4:52PM Anemia Oct 09 2016 4:52PM Hypertension Oct 09 2016 4:52PM Diabetes Mellitus, Type II Oct 09 2016 4:52PM Essential Hypertension Oct 18 2016 8:05AM Diabetes Mellitus, Type II Oct 18 2016 8:05AM Anemia Oct 18 2016 8:05AM Hyperlipidemia, Mixed Oct 18 2016 8:05AM Cutaneous candidiasis Oct 18 2016 8:05AM Uncontrolled type 2 diabetes mellitus Feb 27 2017 11:00AM Excessive flatus Feb 27 2017 11:00AM Upper respiratory infection Feb 27 2017 11:00AM Pharyngitis Sep 09 2017 1:57PM Otitis media Sep 09 2017 1:57PM Left Breast Mass Jan 01 2018 1:43PM Anemia Jan 03 2018 9:52AM Hypertension Jan 03 2018 9:52AM Hyperlipidemia Jan 03 2018 9:52AM Diabetes Mellitus, Type II Jan 03 2018 9:52AM Anemia Jan 01 2018 1:43PM Hypertension Jan 01 2018 1:43PM Breast mass, left Jan 11 2018 11:39AM Payers Insurance Name Company Name Plan Name Plan Number Policy Number Policy Group Number Start Date Medicare RHC Medicare RHC [id number] N/A Cigna Medicare Supplement Cigna Medicare Supplement [id number] N/A BCBS [facility] [id number] Sunday, 2010 Medicare Part A Medicare - Lab/Xray [id number] N/A History of Encounters Visit Date Visit Type Provider 01/01/2018 Office visit Tre Churchill DO 09/09/2017 Office visit Cole De Leon NP 02/27/2017 Office visit Tre Zhao DO 10/18/2016 Office visit Tre Zhao DO 01/18/2016 Office visit Tre Zhao DO 10/14/2015 Office visit Tre Zhao DO 10/20/2014 Office visit Tre Zhao DO 06/11/2014 Office visit Tre Zhao DO 05/29/2014 Office visit Rom Barrett PA-C 04/09/2014 Office visit Tre Zhao DO 02/10/2014 Office visit Tre Zhao DO 07/10/[address] Zhao DO 06/17/2013 Office visit Tre Zhao DO 05/29/2013 Office visit Tre Zhao DO 04/03/2013 Office visit Tre Zhao DO 06/27/2012 Office visit Tre Zhao DO 03/26/2012 Office visit Tre Zhao DO 08/10/2011 [facility] William Jeffries MD 08/10/2011 Office visit Tre Zhao DO 07/13/2011 Office visit Tre Zhao DO 06/26/2011 Office visit Erna Garza APRN 04/05/2011 Procedures Moe Norris MD 03/16/2011 Office visit Tre Zhao DO 11/07/2010 Office visit Tre Zaho DO 10/03/2010 Office visit Tre Zhao DO 09/23/2010 Nurse visit Lynette HEART 09/13/2010 Office visit Lynette HEART 08/02/2010 Office visit Lynette HEART 06/30/2010 Office visit Lynette HEART 06/07/2010 Office visit Lynette HEART 02/04/2010 Office visit Steff HEART 01/17/2010 Office visit Moe Moon DO 10/15/2009 Office visit Moe Moon DO 08/09/2009 Office visit Moe Moon DO 07/29/2009 Office visit Moe Moon DO
--- OUTSIDE RECORDS SUMMARY | 2018-05-09 07:10 | XMS REPORT ---
Author Author Tre Churchill [facility] Address [address] [place], [place] [id number] Care Team Providers Care Health And Safety Technician Name Role Phone Tre Churchill PCP Unavailable Tre Churchill PreferredProvider Unavailable Allergies and Adverse Reactions Name Reaction Notes NO KNOWN DRUG ALLERGIES Plan of Treatment Not available. Medications Active Name Start Date Estimated Completion [...] WITH MEALS lisinopril-hydrochlorothiazide 20-25 mg oral tablet 07/28/2015 TAKE 1 TABLET BY MOUTH ONCE A DAY simvastatin 40 mg oral tablet 08/01/2015 TAKE [...] BY MOUTH ONCE DAILY IN THE EVENING Fish Oil [place] 3-6-9 300-1,000 mg oral capsule,delayed release(DR/EC) 2014 take 3 capsules by oral route daily simvastatin 40 mg oral tablet 11/08/2015 TAKE [...] (25 mg) by oral route at bedtime atenolol 100 mg oral tablet 05/02/2016 TAKE ONE TABLET BY MOUTH ONCE DAILY simvastatin 40 mg oral tablet 05/08/2016 TAKE ONE TABLET BY MOUTH ONCE DAILY IN THE EVENING Klor-Con M20 20 mEq oral tablet,ER particles/crystals 05/08/2016 TAKE ONE TABLET BY MOUTH ONCE DAILY OneTouch Ultra Test miscellaneous strip 05/27/2016 TEST GLUCOSE ONCE A DAY nortriptyline 25 mg oral capsule 07/06/2016 TAKE ONE CAPSULE BY MOUTH AT BEDTIME Jentadueto 2.5-850 mg oral tablet 07/20/2016 TAKE ONE TABLET BY MOUTH TWICE DAILY WITH MEALS gemfibrozil 600 mg oral tablet 08/09/2016 TAKE ONE TABLET BY MOUTH 30 MINUTES BEFORE MORNING MEAL AND ONE TABLET 30 MINUTES BEFORE EVENING MEAL lisinopril-hydrochlorothiazide 20-25 mg oral tablet 10/08/2016 TAKE ONE TABLET BY MOUTH ONCE DAILY simvastatin 40 mg oral tablet 11/12/2016 TAKE ONE TABLET BY MOUTH ONCE DAILY IN THE EVENING Klor-Con M20 20 mEq oral tablet,ER particles/crystals 11/12/2016 TAKE ONE TABLET BY MOUTH ONCE DAILY nortriptyline 25 mg oral capsule 01/11/2017 TAKE ONE CAPSULE BY MOUTH AT BEDTIME Invokamet 150-1,000 mg oral tablet 02/27/2017 08/26/2017 take 1 tablet by oral route 2 times per day with meals for 30 days montelukast 10 mg oral tablet 02/27/2017 take 1 tablet (10 mg) by oral route once daily in the evening dicyclomine 10 mg oral capsule 02/27/2017 take 1 capsule by oral route 2 times a day as needed montelukast 10 mg oral tablet 03/17/2017 take 1 tablet (10 mg) by oral route once daily in the evening venlafaxine 75 mg oral tablet 04/12/2017 10/09/2017 take 1 tablet (75 mg) by oral route 2 times per day with food for 30 days Name Start Date Expiration Date SIG Comments [...] oral route once daily for 5 days Discontinued Name Start Date Discontinued Date SIG [...] daily in the evening for 30 days [facility] [place] Oral 07/13/2011 [...] BEFORE THE FIRST MEAL OF THE DAY gabapentin 600 mg oral tablet 10/25/2015 [...] Immediate Release likely due to coverage problem Invokana 100 mg oral tablet 08/29/2016 10/18/2016 take 1 tablet (100 mg) by oral route once daily before the first meal of the day for 30 days Invokana 100 mg oral tablet 08/29/2016 10/18/2016 take 1 tablet (100 mg) by oral route once daily before the first meal of the day for 30 days Vázquez ortega of $400 toward Medicare donut hole. Wants to try Janumet alone first. Jentadueto 2.5-850 mg oral tablet 09/25/2016 10/18/2016 TAKE ONE TABLET BY MOUTH TWICE DAILY WITH MEALS nystatin 100,000 unit/gram topical cream 10/18/2016 11/22/2016 apply to the affected area(s) by topical route 3 times per day Janumet XR 50-1,000 mg oral tablet, ER multiphase 24 hr 10/18/2016 02/27/2017 take 2 tablets by oral route once daily with evening meal, swallowing whole. 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 Tobacco Former [...] Reviewed 01/17/2010 12:00 AM ELECTROCARDIOGRAM COMPLETE Reviewed 03/27/2013 12:00 AM GLYCOSYLATED HEMOGLOBIN TEST Reviewed 03/27/2013 12:00 AM LIPID PANEL Reviewed 03/27/2013 12:00 AM COMPLETE CBC W/AUTO DIFF WBC Reviewed 03/27/2013 12:00 AM COMPREHEN METABOLIC PANEL Reviewed 10/15/2009 12:00 AM THER/PROPH/DIAG INJ SC/IM Reviewed 10/15/2009 12:00 AM Kenalog 40 Mg Im-[facility]#[id number] Reviewed 02/03/2014 12:00 AM GLYCOSYLATED HEMOGLOBIN TEST [...] Reviewed Results Summary Date and Description Results 06/17/2009 12:00 AM Cholest Cry Stone Ql IR 197.0 %LDLc SerPl-mCnc 126.0 mg/ dLHDLc SerPl-mCnc 28.0 mg/dLTrigl SerPl-mCnc 275.0 mg/dLGlucose SerPl-mCnc 114.0 mg/dL 08/02/2009 12:00 AM Mammogram -Women over 40 Normal 10/14/2009 5:30 PM HIV1+2 Ab Ser Ql no risk Aspirin reccommended Reccommended 10/15/2009 3:48 PM Pap Smear Declined 10/15/2009 3:49 PM Depression Has Depression 10/15/2009 3:49 PM Colonoscopy-Women and Men over 50 Declined 11/16/2009 12:00 AM Pap Smear Negative Dexa Bone Scan Done 06/27/2010 8:20 AM TRIGLYCERIDES 394.0 mg/dLCHOLESTEROL 213.0 mg/dLHDL 24.0 mg/ dLTOT CHOL/HDL 8.9 LDL (CALC) 110.0 mg/dLGLYCOHEMOGLOBIN A1C 6.30 %RECHECKED A1C AND FBS 09/13/2010 [...] 11/07/2010 4:27 PM VITAMIN B12 570.0 pg/mL History Of Immunizations Name Date Admin Mfg Name Mfg Code Trade Name Lot# Route Inj Vis Given Vis Pub CVX Tdap 01/17/2016 Not Entered NE ADACEL Not Entered Not Entered 201511/05/2016 115 Pneumococcal 01/26/2016 Not Entered NE Pneumovax 23 Not Entered Not Entered 01/26/2016 11/05/2016 33 Influenza 07/20/2016 Not Entered NE Fluzone High-Dose Intramuscular Left Arm 11/05/2016 11/05/2016 141 Pneumococcal 02/01/2017 Not Entered NE Prevnar 13 Not Entered Not Entered 11/05/2016 11/05/2016 133 History of Past Illness Name Date of Onset Comments Cough Oct 15 2009 4:00PM Acute Pharyngitis Oct 15 2009 4:00PM Pneumonia Oct 15 2009 4:00PM Chronic Obstructive Pulmonary Disease, Decompensated Oct 15 2009 4:00PM Hypertension Anemia Menopausal Syndrome GERD Preoperative Examination Jan 17 2010 2:40PM Bronchitis, Acute Feb 04 2010 8:26AM Sleep Apnea, Obstructive moderate Peripheral Neuropathy 03/19/2011 Depression Hyperlipidemia Diabetes Mellitus, Type II [...] Upper respiratory infection Feb 27 2017 11:00AM Payers Insurance Name Company Name Plan Name Plan Number Policy Number Policy Group Number Start Date Medicare RHC Medicare RHC [id number] N/A Medicare Part A Medicare - Lab/Xray [id number] N/A [id number] Sunday, October 03, 2010 History of Encounters Visit Date Visit Type Provider 02/27/2017 Office visit Tre Churchill DO 10/18/2016 Office visit Tre Churchill DO 01/18/2016 Office visit Tre Churchill DO 10/14/2015 Office visit Tre Churchill DO 10/20/2014 Office visit Tre Churchill DO 06/11/2014 Office visit Tre Churchill DO 05/29/2014 Office visit Rom Barrett PA-C 04/09/2014 Office visit Tre Churchill DO 02/10/2014 Office visit Tre Churchill DO 07/10/2013 Office visit Tre Churchill DO 06/17/2013 Office visit Tre Churchill DO 05/29/2013 Office visit Tre Churchill DO 04/03/2013 Office visit Tre Churchill DO 06/27/2012 Office visit Tre Churchill DO 03/26/2012 Office visit Tre Churchill DO 08/10/2011 Hospital William Jeffries MD 08/10/2011 Office visit Tre Churchill DO 07/13/2011 Office visit Tre Churchill DO 06/26/2011 Office visit Erna Garza APRN 04/05/2011 Procedures Moe Norris MD 03/16/2011 Office visit Tre Churchill DO 11/07/2010 Office visit Tre Churchill DO 10/03/2010 Office visit Tre Churchill DO 09/23/2010 Nurse visit Lynette HEART 09/13/2010 Office visit Lynette HEART 08/02/2010 Office visit Lynette HEART 06/30/2010 Office visit Lynette HEART 06/07/2010 Office visit Lynette HEART 02/04/2010 Office visit Steff EHART 01/17/2010 Office visit Moe Moon DO 10/15/2009 Office visit Moe Moon DO 08/09/2009 Office visit Moe Moon DO 07/29/2009 Office visit Moe Moon DO
--- OUTSIDE RECORDS SUMMARY | 2018-05-09 07:11 | XMS REPORT ---
Author Author Tre Churchill [facility] Address [address] [place], [place] [id number] Care Team Providers Care Coat Padder Name Role Phone Tre Churchill PCP Unavailable Allergies and Adverse Reactions Name Reaction Notes NO KNOWN DRUG ALLERGIES Plan of Treatment Planned Activity Comments Planned Date Planned Time Plan/Goal COMPLETE CBC W/AUTO DIFF WBC 03/12/2012 12:00 AM COMPREHEN METABOLIC PANEL 03/12/2012 12:00 AM GLYCOSYLATED HEMOGLOBIN TEST 06/30/2013 12:00 AM MICROALBUMIN QUANTITATIVE 06/30/2013 12:00 AM COMPREHEN METABOLIC PANEL 06/30/2013 12:00 AM GLYCOSYLATED HEMOGLOBIN TEST 06/17/2013 12:00 AM MICROALBUMIN QUANTITATIVE 06/17/2013 12:00 AM GLYCOSYLATED HEMOGLOBIN TEST 07/10/2013 12:00 AM MICROALBUMIN QUANTITATIVE 07/10/2013 12:00 AM COMPLETE CBC W/AUTO DIFF WBC 02/03/2014 12:00 AM COMPREHEN METABOLIC PANEL 08/12/2014 12:00 AM GLYCOSYLATED HEMOGLOBIN TEST 08/12/2014 12:00 AM COMPLETE CBC W/AUTO DIFF WBC 08/12/2014 12:00 AM Medications Active Name Start Date [...] 1 CAPSULE BY MOUTH ONCE A DAY fenofibrate 160 mg oral tablet 12/01/2014 11/26/2015 take 1 tablet (160 mg) by oral route once daily for 90 days Jentadueto 2.5-850 mg oral tablet 12/10/2014 take [...] ONCE DAILY IN THE EVENING Fish Oil [place] 3-6-9 300-1,000 mg oral capsule,delayed release(DR/EC) 2014 take 3 capsules by oral route daily gabapentin 600 mg oral tablet 10/25/2015 TAKE ONE TABLET BY MOUTH THREE TIMES DAILY simvastatin 40 mg oral tablet 11/08/2015 TAKE ONE TABLET BY MOUTH ONCE DAILY IN THE EVENING Klor-Con M20 20 mEq oral tablet,ER particles/crystals 11/08/2015 TAKE ONE TABLET BY MOUTH ONCE DAILY Farxiga 10 mg oral tablet 11/11/2015 05/09/2016 take 1 tablet (10 mg) by oral route once daily in the morning for 30 days Name Start Date Expiration [...] 1 CAPSULE BY MOUTH ONCE A DAY lisinopril-hydrochlorothiazide 20-25 mg oral tablet 09/09/2013 11/08/2013 TAKE 1 TABLET BY MOUTH ONCE A DAY venlafaxine 75 mg oral capsule,extended release 24hr 10/06/2013 04/04/2014 TAKE 1 CAPSULE BY MOUTH ONCE A DAY Trilipix 135 mg oral capsule,delayed release(/EC) 11/27/2013 05/26/2014 TAKE 1 CAPSULE BY MOUTH ONCE A DAY Accu-Chek Sita miscellaneous strip 05/14/2014 09/11/2014 Test glucose twice a week Dx: 250.00 gabapentin 600 mg oral tablet 10/20/2014 04/18/2015 take 1 tablet (600 mg) by oral route 3 times per day for 30 days Invokana 100 mg oral tablet 12/10/2014 06/08/2015 take 1 tablet (100 mg) by oral route once daily before the first meal of the day for 30 days Discontinued Name Start Date Discontinued Date [...] route daily for 30 days "too expensive" Trilipix 135 mg oral capsule,delayed release(DR/EC) 06/02/2014 12/01/2014 TAKE 1 CAPSULE BY MOUTH ONCE A DAY Invokana 100 mg oral tablet 06/10/2015 11/11/2015 TAKE ONE TABLET BY MOUTH ONCE DAILY BEFORE THE FIRST MEAL OF THE DAY Problem List Description Status Onset Anemia Active Hypertension Active Menopausal Syndrome Active GERD Active Peripheral neuropathy Active 03/19/2011 Depression Active Hyperlipidemia Active Sleep Apnea, Obstructive Active Diabetes Mellitus, Type II Active Vital Signs Date Time BP-Sys(mm[Hg] BP-Barbara(mm[Hg]) HR(bpm) RR(rpm) Temp WT HT HC BMI BSA BMI Percentile O2 Sat(%) 10/14/2015 8:32:00 AM 132 mmHg 70 mmHg 68 bpm 20 rpm 98.5 F 205 lbs 67 in 32.11 kg/m2 2.10 m2 98 % 10/20/2014 8:46:00 AM 136 mmHg 70 mmHg 68 bpm 16 rpm 98.3 F 212 lbs 67 in 33.2036 kg/m 2.1321 m 100 % 06/11/2014 8:54:00 AM 128 mmHg 70 mmHg 76 bpm 20 rpm 98.5 F 213 lbs 67 in 33.36 kg/m2 2.14 m2 100 % 05/29/2014 5:03:00 PM 132 mmHg 66 mmHg 73 bpm 18 rpm 98.4 F 210.25 lbs 67 in 32.9295 kg/m 2.1233 m 99 % 04/09/2014 3:26:00 PM 140 mmHg 78 mmHg 70 bpm 18 rpm 97.9 F 212.4 lbs 67 in 33.27 kg/m2 2.13 m2 97 % 02/10/2014 8:14:00 AM 132 mmHg 78 mmHg 79 bpm 20 rpm 98 F 213 lbs 67 in 33.3602 kg/m 2.1371 m 98 % 07/10/2013 8:23:00 AM 138 mmHg 62 mmHg 70 bpm 20 rpm 98.6 F 220 lbs 67 in 34.46 kg/m2 2.17 m2 96 % 06/17/2013 10:06:00 AM 128 mmHg 70 mmHg 60 bpm 18 rpm 98.1 F 217 lbs 67 in 33.9867 kg/m 2.1571 m 05/29/2013 10:50:00 AM 130 mmHg 72 mmHg 70 bpm 18 rpm 98.1 F 214 lbs 67 in 33.52 kg/m2 2.14 m2 04/03/2013 9:53:00 AM 134 mmHg 70 mmHg 78 bpm 20 rpm 98.1 F 215 lbs 67 in 33.6734 kg/m 2.1471 m 06/27/2012 9:39:00 AM 126 mmHg 62 mmHg 70 bpm 18 rpm 98 F 218 lbs 67 in 34.14 kg/m2 2.16 m2 03/26/2012 10:17:00 AM 136 mmHg 70 mmHg 62 bpm 18 rpm 98.3 F 213 lbs 67 in 33.3602 kg/m 2.1371 m 08/10/2011 8:05:00 AM 130 mmHg 62 mmHg 78 bpm 18 rpm 98.2 F 213 lbs 67 in 33.36 kg/m2 2.14 m2 07/13/2011 2:22:00 PM 118 mmHg 60 mmHg 07/13/2011 2:22:00 PM 108 mmHg 50 mmHg 07/13/2011 2:22:00 PM 100 mmHg 50 mmHg 07/13/2011 2:20:00 PM 120 mmHg 60 mmHg 64 bpm 18 rpm 97 F 216 lbs 67 in 33.83 kg/m2 2.15 m2 06/26/2011 3:38:00 PM 138 mmHg 80 mmHg 84 bpm 98.1 F 215 lbs 04/05/2011 2:38:00 PM 130 mmHg 70 mmHg 88 bpm 18 rpm 98 F 214 lbs 03/16/2011 3:50:00 PM 136 mmHg 72 mmHg 74 bpm 16 rpm 99 F 213 lbs 67 in 33.3602 kg/m 2.1371 m 11/07/2010 3:44:00 PM 132 mmHg [...] rpm 98.2 F 211.25 lbs 67 in 33.0861 kg/m 2.1283 m 96 % 10/15/2009 3:29:00 PM 148 mmHg 78 mmHg 76 bpm 16 rpm 97.3 F 212.25 lbs 67 in 33.24 kg/m2 2.13 m2 97 % Social History Name Description Comments Denies illicit substance abuse denies alcohol use 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 Tobacco Former [...] Reviewed 08/10/2011 12:00 AM MICROALBUMIN SEMIQUANT Reviewed 03/12/2012 12:00 AM GLYCOSYLATED HEMOGLOBIN TEST Reviewed 03/12/2012 12:00 AM LIPID PANEL Reviewed 01/17/2010 12:00 AM ELECTROCARDIOGRAM COMPLETE Reviewed 03/27/2013 12:00 AM GLYCOSYLATED HEMOGLOBIN TEST Reviewed 03/27/2013 12:00 AM LIPID PANEL Reviewed 03/27/2013 12:00 AM COMPLETE CBC W/AUTO DIFF WBC Reviewed 03/27/2013 12:00 AM COMPREHEN METABOLIC PANEL Reviewed 10/15/2009 12:00 AM THER/PROPH/DIAG INJ SC/IM Reviewed 10/15/2009 12:00 AM Kenalog 40 Mg Im-[facility]#[id number] Reviewed 02/03/2014 12:00 AM GLYCOSYLATED HEMOGLOBIN TEST Reviewed 02/03/2014 12:00 AM LIPID PANEL Reviewed 02/03/2014 12:00 AM COMPREHEN METABOLIC PANEL [...] AM BIOPSY SKIN ADD-ON Reviewed Results Summary Data and Description Results 06/17/2009 12:00 AM Cholest [...] TRIGLYCERIDES 394.0 mg/dLCHOLESTEROL 213.0 mg/dLHDL 24.0 mg/ dLLDL (CALC) 110.0 mg/dL 09/13/2010 9:16 AM TRIGLYCERIDES 308.0 mg/dLCHOLESTEROL 184.0 mg/dLHDL 27.0 mg/ dLLDL (CALC) 95.0 mg/dLGLUCOSE 123.0 mg/dLSODIUM 139.0 mmol/LPOTASSIUM 4.0 mmol/ LCHLORIDE 103.0 mmol/LCO2 22.0 mmol/LBUN 17.0 mg/dLCREATININE 0.80 mg/dLSGOT/ AST 34.0 IU/LSGPT/ALT 32.0 IU/LALK PHOS 89.0 IU/LTOTAL PROTEIN 7.20 g/dLALBUMIN 4.80 g/dLTOTAL BILI 0.50 mg/dLCALCIUM 10.0 mg/dLeGFR >60 mL/min/1.73 m2 11/07/2010 4:27 PM VITAMIN B12 570.0 pg/mL History Of Immunizations Not available. History of Past Illness Name Date of [...] Mellitus, Type II Oct 14 2015 8:34AM Payers Insurance Name Company Name Plan Name Plan Number Policy Number Policy Group Number Start Date [facility] [id number] Sunday, 2010 History of Encounters Visit Date Visit Type Provider 10/14/2015 Office visit Tre Churchill DO 10/20/2014 [...] 03/26/2012 Office visit Tre Churchill DO 08/10/2011 [facility] William Jeffries MD 08/10/2011 Office visit Tre Churchill DO 07/13/2011 Office visit Tre Churchill DO 06/26/2011 Office visit Erna Garza APRN 04/05/2011 Procedures Moe Norrsi MD 03/16/2011 Office visit Tre Cuhrchill DO 11/07/2010 Office visit Tre Churchill DO [...]
--- OUTSIDE RECORDS SUMMARY | 2018-05-09 07:12 | XMS REPORT ---
Author Author Tre Churchill [facility] Address [address] [place], [place] [id number] Care Team Providers Care Stem Dryer Maintainer Name Role Phone Tre Churchill PCP Unavailable [...] TAKE ONE CAPSULE BY MOUTH ONCE DAILY Invokana 100 mg oral tablet 06/10/2015 TAKE ONE TABLET BY MOUTH ONCE DAILY BEFORE THE FIRST MEAL OF THE DAY Jentadueto 2.5-850 mg oral tablet 06/29/2015 TAKE [...] ONCE DAILY IN THE EVENING Fish Oil [place] 3-6-9 300-1,000 mg oral capsule,delayed release(DR/EC) 2014 take 3 capsules by oral route daily Name Start Date Expiration Date SIG Comments [...] 1 CAPSULE BY MOUTH ONCE A DAY Problem List Description Status Onset Anemia [...] denies alcohol use 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
--- OUTSIDE RECORDS SUMMARY | 2018-05-09 07:13 | XMS REPORT ---
Author Author Tre Churchill [facility] Address [address] [place], [place] [address] Care Team Providers Care Director Business Management Name Role Phone Tre Churchill PCP Unavailable [...] ONCE DAILY IN THE EVENING Fish Oil [place] 3-6-9 300-1,000 mg oral capsule,delayed release(DR/EC) 2014 [...] TABLET BY MOUTH TWICE DAILY WITH MEALS Invokana 100 mg oral tablet 01/18/2016 07/16/2016 take 1 tablet (100 mg) by oral route once daily before the first meal of the day for 30 days nortriptyline 25 mg oral capsule 01/18/2016 take 1 capsule (25 mg) by oral route at bedtime gemfibrozil 600 mg oral tablet 02/10/2016 08/08/2016 take 1 tablet (600 mg) by oral route 2 times per day 30 minutes before morning and evening meal for 30 days atenolol 100 mg oral tablet 05/02/2016 TAKE ONE TABLET BY MOUTH ONCE DAILY simvastatin 40 mg oral tablet 05/08/2016 TAKE ONE TABLET BY MOUTH ONCE DAILY IN THE EVENING Klor-Con M20 20 mEq oral tablet,ER particles/crystals 05/08/2016 TAKE ONE TABLET BY MOUTH ONCE DAILY Name Start Date Expiration Date SIG Comments [...] oral route once daily for 90 days Discontinued Name Start Date Discontinued Date [...] 30 days Duplicare medication on list Black Zonderosh Oral 07/13/2011 one daily no longer taking [...] once daily for 30 days Too expensive Problem List Description Status Onset Anemia Active Hypertension Active Menopausal Syndrome Active GERD Active Peripheral neuropathy Active 03/19/2011 Depression Active Hyperlipidemia Active Sleep Apnea, Obstructive Active Diabetes Mellitus, Type II Active Vital Signs Date Time BP-Sys(mm[Hg] BP-Barbara(mm[Hg]) HR(bpm) RR(rpm) Temp WT HT HC BMI BSA BMI Percentile O2 Sat(%) 01/18/2016 4:01:00 PM 122 mmHg 72 mmHg [...] F 216 lbs 67 in 33.83 kg/m 2.1521 m 06/26/2011 3:38:00 PM 138 mmHg 80 mmHg 84 bpm 98.1 F 215 lbs 04/05/2011 2:38:00 PM 130 mmHg 70 mmHg 88 bpm 18 rpm 98 F 214 lbs 03/16/2011 3:50:00 PM 136 mmHg 72 mmHg 74 bpm 16 rpm 99 F 213 lbs 67 in 33.36 kg/m2 2.14 m2 11/07/2010 3:44:00 PM 132 mmHg 72 mmHg [...] F 211.25 lbs 67 in 33.09 kg/m2 2.13 m2 96 % 10/15/2009 3:29:00 PM 148 mmHg 78 mmHg 76 bpm 16 rpm 97.3 F 212.25 lbs 67 in 33.2427 kg/m 2.1333 m 97 % Social History Name Description Comments Denies illicit substance abuse denies alcohol use 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#[id number] Reviewed 02/03/2014 12:00 AM GLYCOSYLATED HEMOGLOBIN TEST [...] 213.0 mg/dLHDL 24.0 mg/ dLLDL (CALC) 110.0 mg/dLGLYCOHEMOGLOBIN A1C 6.30 % 09/13/2010 9:16 AM TRIGLYCERIDES 308.0 mg/dLCHOLESTEROL 184.0 mg/dLHDL 27.0 mg/ dLLDL (CALC) 95.0 mg/dLGLYCOHEMOGLOBIN A1C 5.80 %GLUCOSE 123.0 mg/dLSODIUM 139.0 mmol/LPOTASSIUM 4.0 mmol/LCHLORIDE 103.0 mmol/LCO2 22.0 mmol/LBUN 17.0 mg/ dLCREATININE 0.80 mg/dLSGOT/AST 34.0 IU/LSGPT/ALT 32.0 IU/LALK PHOS 89.0 IU/ LTOTAL PROTEIN 7.20 g/dLALBUMIN 4.80 g/dLTOTAL BILI 0.50 mg/dLCALCIUM 10.0 mg/ dLeGFR >60 mL/min/1.73 m2 11/07/2010 4:27 PM VITAMIN B12 570.0 pg/mL History Of Immunizations Name Date Admin Mfg Name Mfg Code Trade Name Lot# Route Inj Vis Given Vis Pub CVX Tdap 01/17/2016 Not Entered NE ADACEL Not Entered Not Entered 201511/05/2015 115 PCV 01/26/2016 Not Entered NE Pneumovax 23 Not Entered Not Entered 11/05/2015 33 History of Past Illness Name Date of [...] Mellitus, Type II Jan 18 2016 4:06PM Payers Insurance Name Company Name Plan Name Plan Number Policy Number Policy Group Number Start Date [facility] [id number] Sunday, 2010 History of Encounters Visit Date Visit Type Provider 01/18/2016 Office visit Tre Churchill DO 10/14/2015 [...]
--- OUTSIDE RECORDS SUMMARY | 2018-05-09 07:14 | XMS REPORT ---
Author Author Tre Churchill [facility] Address [address] [place], [place] [id number] Care Team Providers Care Ambulance Paramedic Name Role Phone Tre Churchill PCP Unavailable [...] ONCE DAILY IN THE EVENING Fish Oil [place] 3-6-9 300-1,000 mg oral capsule,delayed release(DR/EC) 2014 [...] TAKE ONE CAPSULE BY MOUTH ONCE DAILY fenofibrate 160 mg oral tablet 12/09/2015 TAKE ONE TABLET BY MOUTH ONCE DAILY Jardiance 10 mg oral tablet 12/10/2015 12/04/2016 take 1 tablet (10 mg) by oral [...] BEFORE THE FIRST MEAL OF THE DAY Farxiga 10 mg oral tablet 11/11/2015 12/10/2015 take 1 tablet (10 mg) by oral route once daily in the morning for 30 days Problem List Description Status Onset Anemia Active [...] denies alcohol use 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
--- OUTSIDE RECORDS SUMMARY | 2018-05-09 07:14 | XMS REPORT ---
Author Author Tre Churchill [facility] Address [address] [place], [place] [address] Care Team Providers Care Lead Recreation Assistant Name Role Phone Tre Churchill PCP Unavailable [...] take 1 capsule by oral route daily nystatin-triamcinolone 100,000-0.1 unit/g-% topical cream 04/03/2013 apply to the affected area(s) by topical route 2 times per day in the morning and evening potassium chloride 20 mEq oral tablet,ER particles/crystals 11/18/2013 TAKE 1 TABLET BY MOUTH ONCE A DAY Fish Oil [place] 3-6-9 300-1,000 mg oral capsule,delayed release(DR/EC) take 1 capsule by oral route daily Nexium 40 mg oral capsule,delayed release(DR/EC) 02/14/2014 [...] BY MOUTH ONCE DAILY IN THE EVENING Name Start Date Expiration Date SIG Comments [...] 1 CAPSULE BY MOUTH ONCE A DAY Bydureon 2 mg subcutaneous suspension,extended rel recon [...] HC BMI BSA BMI Percentile O2 Sat(%) 10/20/2014 8:46:00 AM 136 mmHg 70 mmHg [...] denies alcohol use 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 Tobacco Former [...] Reviewed 10/15/2009 12:00 AM Kenalog 40 Mg Im-[facility]#[id number] Reviewed 02/03/2014 12:00 AM GLYCOSYLATED HEMOGLOBIN TEST [...] Mellitus, Type II Sep 21 2015 11:50AM Payers Insurance Name Company Name Plan Name Plan Number Policy Number Policy Group Number Start Date [facility] [id number] Sunday, 2010 History of Encounters Visit Date Visit Type Provider 10/20/2014 Office visit Tre Churchill DO 06/11/2014 Office visit Tre Churchill DO 05/29/2014 Office visit Rom Barrett PA-C 04/09/2014 Office visit Tre Churchill DO 02/10/2014 Office visit Tre Churchill DO 07/10/2013 Office visit Tre Churchill DO 06/17/2013 Office visit rTe Churchill DO 05/29/2013 Office visit Tre Churchill DO 04/03/2013 Office visit Tre Churchill DO 06/27/2012 Office visit Tre Churchill DO 03/26/2012 Office visit Tre Churchill DO 08/10/2011 [facility] William Jeffries MD 08/10/2011 Office visit Tre [...]
[2018-05-09] MEDS ORDERED: ceFAZolin INJECTION 1,000 MG in NS (IVPB) 50 ML IV ONE (07:15)
--- OUTSIDE RECORDS SUMMARY | 2018-05-09 07:16 | XMS REPORT ---
Author Author Tre Churchill [facility] Address [address] [place], [place] [phone] Care Team Providers Care Board Mixer Tender Name Role Phone Tre Churchill PCP Tre [...] 1 TABLET BY MOUTH ONCE A DAY OneTouch Ultra Test miscellaneous [...] ONCE DAILY simvastatin 40 mg oral tablet 05/04/2015 [...] TAKE ONE CAPSULE BY MOUTH AT BEDTIME ONETOUCH ULTRA BLUE TEST STP 07/23/2017 03/15/2019 TEST GLUCOSE ONCE A DAY OneTouch Ultra Test miscellaneous strip 07/24/2017 Test glucose once a day Dx:e11.9 Fish Oil 360-1,200 mg oral capsule 01/04/2018 take 2 capsules by oral route 2 times a day dicyclomine 10 mg oral capsule 02/25/2018 05/26/2018 take 1 capsule by oral route once a day (in the morning) for 90 days venlafaxine 150 mg oral tablet extended release 24hr 02/25/2018 05/26/2018 take 1 tablet (150 mg) by oral route once daily in the morning at the same time each day with food for 90 days gabapentin 600 mg oral tablet 03/01/2018 08/28/2018 take 1 tablet by oral route 2 times a day for 30 days Name Start Date Expiration [...] 1 TABLET BY MOUTH ONCE A DAY metformin 500 mg oral tablet 07/10/2013 01/06/2014 [...] Test glucose twice a week Dx: 250.00 fenofibrate 160 mg oral tablet 12/01/2014 11/26/2015 [...] BY MOUTH ONCE DAILY IN THE EVENING Augmentin 500-125 mg oral tablet 09/09/2017 09/19/2017 take 1 tablet by oral route every 12 hours for 10 days Invokamet 150-1,000 mg oral tablet 09/16/2017 09/16/2017 TAKE ONE TABLET BY MOUTH TWICE DAILY WITH MEALS Klor-Con M20 20 mEq oral tablet,ER particles/crystals 11/12/2017 11/12/2017 TAKE ONE TABLET BY MOUTH ONCE DAILY simvastatin 40 mg oral tablet 11/19/2017 11/19/2017 [...] daily in the evening for 30 days [facility] Black Cohosh Oral [...] route once a day (in the evening) Zofran ODT 4 mg oral tablet,disintegrating 01/23/2012 [...] rpm 97.4 F 197 lbs 67 in 30.8542 kg/m 2.0553 m 98 % 09/09/2017 1:55:00 PM 138 mmHg 64 mmHg 80 bpm 16 rpm 99.1 F 198 lbs 67 in 31.01 kg/m2 2.06 m2 94 % 02/27/2017 10:50:00 AM 128 mmHg 68 mmHg 80 bpm 18 rpm 97.2 F 190.5 lbs 67 in 29.8362 kg/m 2.0211 m 94 % 10/18/2016 8:02:00 AM 118 mmHg 68 mmHg 81 bpm 18 rpm 97.5 F 198 lbs 67 in 31.01 kg/m2 2.06 m2 100 % 01/18/2016 4:01:00 PM 122 mmHg 72 mmHg 83 bpm 18 rpm 98.4 F 206 lbs 67 in 32.2638 kg/m 2.1017 m 96 % 10/14/2015 8:32:00 AM 132 mmHg [...] denies alcohol use 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 Tobacco Former [...] AM LIPID PANEL Reviewed 01/01/2018 12:00 AM MAMMOGRAM SCREENING Reviewed 01/01/2018 12:00 AM Breast ultrasound Reviewed 01/11/2018 12:00 AM BX BREAST 1ST LESION US IMAG Reviewed 03/27/2013 12:00 AM GLYCOSYLATED HEMOGLOBIN TEST Reviewed 03/27/2013 12:00 AM LIPID PANEL Reviewed 03/27/2013 12:00 AM COMPLETE CBC W/AUTO DIFF WBC Reviewed 03/27/2013 12:00 AM COMPREHEN METABOLIC PANEL Reviewed 10/15/2009 12:00 AM THER/PROPH/DIAG INJ SC/IM Reviewed 10/15/2009 12:00 AM Kenalog 40 Mg Im-[facility]#[id number] Reviewed 02/03/2014 12:00 AM GLYCOSYLATED HEMOGLOBIN TEST [...] Dexa Bone Scan Done 06/27/2010 8:20 AM GLYCOHEMOGLOBIN A1C 6.30 %RECHECKED [...] 201511/05/2018 115 Pneumococcal 01/26/2016 Not Entered NE PNEUMOVAX 23 Not Entered Not Entered 01/26/2016 11/05/2018 33 Influenza 07/20/2016 Not Entered NE FLUZONE-HIGH DOSE Intramuscular Left Arm 11/05/2018 11/05/2018 141 Pneumococcal 02/01/2017 Not Entered NE PREVNAR 13 Not Entered Not Entered 11/05/2018 11/05/2018 133 Influenza 07/24/2017 Not Entered NE FLUZONE-HIGH DOSE Not Entered Not Entered 11/05/2018 11/05/2018 135 [...] Number Policy Group Number Start Date [facility] [id number] N/A Cigna Medicare Supplement Cigna Medicare Supplement [id number] N/A [facility] [id number] Sunday, 2010 Medicare Part A Medicare - Lab/Xray [id number] N/A History of Encounters Visit Date Visit Type Provider 01/01/2018 Office visit Tre Churchill DO 09/09/2017 Office visit Cole De Leon NP 02/27/2017 Office visit Tre Churchill DO 10/18/2016 Office visit Tre Churchill DO 01/18/2016 Office visit Tre Churchill DO 10/14/2015 Office visit Tre Churchill DO 10/20/2014 Office visit Tre Churchill DO 06/11/2014 Office visit Tre Zhao DO 05/29/2014 Office visit Rom Barrett PA-C 04/09/2014 Office visit Tre Zhao DO 02/10/2014 Office visit Tre Zhao DO 07/10/2013 Office visit Tre Zhao DO 06/17/2013 Office visit Tre Zhao DO 05/29/2013 Office visit Tre Zhao DO 04/03/2013 Office visit Tre Zhao DO 06/27/2012 Office visit Tre Zhao DO 03/26/2012 Office visit Tre Zhao DO 08/10/2011 [facility] William Jeffries MD 08/10/2011 Office visit Tre Zhao DO 07/13/2011 Office visit Tre Zhao DO 06/26/2011 Office visit Erna Garza APRN 04/05/2011 Procedures Moe Norris MD 03/16/2011 Office visit Tre Zhao DO 11/07/2010 Office visit Tre Savagete DO 10/03/2010 Office visit Tre Churchill DO [...]
--- OUTSIDE RECORDS SUMMARY | 2018-05-09 07:17 | XMS REPORT ---
Author Author Tre Churchill [facility] Address [address] [place], [place] [address] Care Team Providers Care Latrine Cleaner Name Role Phone Tre Churchill PCP Tre Churchill PreferredProvider Allergies and Adverse Reactions Name Reaction Notes NO KNOWN DRUG ALLERGIES Plan of Treatment Planned Activity Comments Planned Date Planned Time Plan/Goal MAMMOGRAPHY, UNILATERAL, DX DIGITAL 04/16/2018 12:00 AM Medications Active Name Start Date [...] days Vázquez ortega of $400 toward Medicare donwilmer mendez. Wants to try Janumet alone first. 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 Tobacco Former [...] BX BREAST 1ST LESION US IMAG Reviewed 04/16/2018 12:00 AM Breast ultrasound Reviewed 03/27/2013 12:00 AM GLYCOSYLATED HEMOGLOBIN TEST Reviewed 03/27/2013 12:00 AM LIPID PANEL Reviewed 03/27/2013 12:00 AM COMPLETE CBC W/AUTO DIFF WBC Reviewed 03/27/2013 12:00 AM COMPREHEN METABOLIC PANEL Reviewed 10/15/2009 12:00 AM THER/PROPH/DIAG INJ SC/IM Reviewed 10/15/2009 12:00 AM Kenalog 40 Mg Im-[facility]#[id number] Reviewed 02/03/2014 12:00 AM GLYCOSYLATED HEMOGLOBIN TEST [...] Breast mass, left Jan 11 2018 11:39AM Breast mass, left Apr 09 2018 8:42AM Payers Insurance Name Company Name Plan Name Plan Number Policy Number Policy Group Number Start Date Medicare RHC Medicare RHC [id number] N/A Cigna Medicare Supplement Cigna Medicare Supplement [id number] N/A [facility] [id number] Sunday, 2010 Medicare Part A Medicare - Lab/Xray [id number] N/A History of Encounters Visit Date Visit Type Provider 01/01/2018 Office visit Tre Churchill DO 09/09/2017 Office visit Cole De Leon NP 02/27/2017 Office visit Tre Churchill DO 10/18/2016 Office visit Tre Zhao DO [...] 03/26/2012 Office visit Tre Zhao DO 08/10/2011 [facility] William Jeffries MD 08/10/2011 Office visit Tre Zhao DO 07/13/2011 Office visit Tre Zhao DO 06/26/2011 Office visit Erna Garza APRN 04/05/2011 Procedures Moe Norris MD 03/16/2011 Office visit Tre Zhao DO 11/07/2010 Office visit Tre Zhao DO 10/03/2010 Office visit Tre Zhao DO [...]
--- OUTSIDE RECORDS SUMMARY | 2018-05-09 07:18 | XMS REPORT ---
Author Author Tre Churchill [facility] Address [address] [place], [place] [address] Care Team Providers Care Puller Over Name Role Phone Tre Churchill PCP Unavailable Tre Churchill PreferredProvider Unavailable Allergies and Adverse Reactions Name Reaction Notes NO KNOWN DRUG ALLERGIES Plan of Treatment Planned Activity Comments Planned Date Planned Time Plan/Goal Hemoglobin A1c 10/09/2016 12:00 AM Lipid Panel 10/09/2016 12:00 AM CBC with Auto 10/09/2016 12:00 AM Comprehensive metabolic panel 10/09/2016 12:00 AM Microalbuminuria 10/09/2016 12:00 AM VITAMIN B12 10/09/2016 12:00 AM CBC with Auto 03/12/2012 12:00 AM Comprehensive metabolic panel 03/12/2012 12:00 AM Hgb A1C (glycated hemoglobin) 06/30/2013 12:00 AM Albumin; urine, microalbumin, quantitative 06/30/2013 12:00 AM Comprehensive metabolic panel 06/30/2013 12:00 AM Hgb A1C (glycated hemoglobin) 06/17/2013 12:00 AM Albumin; urine, microalbumin, quantitative 06/17/2013 12:00 AM Hgb A1C (glycated hemoglobin) 07/10/2013 12:00 AM Albumin; urine, microalbumin, quantitative 07/10/2013 12:00 AM CBC with Auto 02/03/2014 12:00 AM Comprehensive metabolic panel 08/12/2014 12:00 AM Hemoglobin A1c 08/12/2014 12:00 AM CBC With Auto Differential 08/12/2014 12:00 AM Medications Active Name Start [...] ONCE DAILY IN THE EVENING Fish Oil [place] 3-6-9 300-1,000 mg oral capsule,delayed release(DR/EC) 2014 [...] strip 05/27/2016 TEST GLUCOSE ONCE A DAY venlafaxine 75 mg oral capsule,extended release 24hr 06/05/2016 TAKE ONE CAPSULE BY MOUTH ONCE DAILY nortriptyline 25 mg oral capsule 07/06/2016 TAKE ONE CAPSULE BY MOUTH AT BEDTIME Jentadueto 2.5-850 mg oral tablet 07/20/2016 TAKE ONE TABLET BY MOUTH TWICE DAILY WITH MEALS gemfibrozil 600 mg oral tablet 08/09/2016 TAKE ONE TABLET BY MOUTH 30 MINUTES BEFORE MORNING MEAL AND ONE TABLET 30 MINUTES BEFORE EVENING MEAL Invokana 100 mg oral tablet 08/29/2016 02/25/2017 take 1 tablet (100 mg) by oral route once daily before the first meal of the day for 30 days Jentadueto 2.5-850 mg oral tablet 09/25/2016 TAKE ONE TABLET BY MOUTH TWICE DAILY WITH MEALS lisinopril-hydrochlorothiazide 20-25 mg oral tablet 10/08/2016 TAKE [...] morning and evening meal for 30 days Discontinued Name Start Date [...] alcohol use 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 Tobacco Former [...] AM Kenalog 40 Mg Im-[facility]#0777-8606-56 Reviewed 02/03/2014 12:00 AM GLYCOSYLATED HEMOGLOBIN TEST [...] High-Dose Intramuscular Left Arm 11/05/2016 11/05/2016 141 History of Past Illness Name Date of [...] Mellitus, Type II Oct 09 2016 4:52PM Payers Insurance Name Company Name Plan Name Plan Number Policy Number Policy Group Number [id number] Sunday, 2010 History of Encounters Visit Date [...] 03/26/2012 Office visit Tre Churchill DO 08/10/2011 [facility] William Jeffries MD 08/10/2011 Office visit rTe Churchill DO 07/13/2011 Office visit Tre Churchill DO 06/26/2011 Office visit Erna Garza APRN 04/05/2011 Procedures Moe Norris MD 03/16/2011 Office visit Tre Churchill DO 11/07/2010 Office visit Tre Churchill DO 10/03/2010 Office visit Tre Churchill DO 09/23/2010 Nurse visit Lynette HEATR 09/13/2010 Office visit Lynette HEART 08/02/2010 Office visit Lynette HEART 06/30/2010 Office visit Lynette HEART 06/07/2010 Office visit Lynette HEART 02/04/2010 Office visit Steff HEART 01/17/2010 Office visit Moe Moon DO 10/15/2009 Office visit Moe Moon DO 08/09/2009 Office visit Moe Moon DO 07/29/2009 Office visit Moe Moon DO
--- OUTSIDE RECORDS SUMMARY | 2018-05-09 07:18 | XMS REPORT ---
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
--- OUTSIDE RECORDS SUMMARY | 2018-05-09 07:20 | XMS REPORT ---
Author Author Tre Churchill [facility] Address [address] [place], [place] [address] Care Team Providers Care Campus Security Officer Name Role Phone Tre Churchill PCP Tre Churchill PreferredProvider Allergies and Adverse Reactions Name Reaction Notes NO KNOWN DRUG ALLERGIES Plan of Treatment Planned Activity Comments Planned Date Planned Time Plan/Goal Diagnostic Mammogram 01/01/2018 12:00 AM Breast ultrasound 01/01/2018 12:00 AM Medications Active Name Start [...] TAKE ONE CAPSULE BY MOUTH AT BEDTIME FanminderUCH ULTRA BLUE TEST STP 07/23/2017 03/15/2019 TEST [...] substance abuse denies alcohol use 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 but no 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 Tobacco Former [...] Reviewed 01/03/2018 12:00 AM LIPID PANEL Reviewed 03/27/2013 12:00 AM GLYCOSYLATED HEMOGLOBIN TEST Reviewed 03/27/2013 12:00 AM LIPID PANEL Reviewed 03/27/2013 12:00 AM COMPLETE CBC W/AUTO DIFF WBC Reviewed 03/27/2013 12:00 AM COMPREHEN METABOLIC PANEL Reviewed 10/15/2009 12:00 AM THER/PROPH/DIAG INJ SC/IM Reviewed 10/15/2009 12:00 AM Kenalog 40 Mg Im-[facility]#[id number] Reviewed 02/03/2014 12:00 AM GLYCOSYLATED HEMOGLOBIN TEST [...] Number Start Date Medicare RHC Medicare RHC [id number] N/A Cigna Medicare Supplement Cigna Medicare Supplement [id number] N/A [facility] [id number] Sunday, 2010 Medicare Part A Medicare - Lab/Xray [id number] N/A History of Encounters Visit Date Visit [...] 03/26/2012 Office visit Tre Zhao DO 08/10/2011 [facility] William Jeffries MD 08/10/2011 Office [...]
--- OUTSIDE RECORDS SUMMARY | 2018-05-09 07:20 | XMS REPORT ---
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
--- OUTSIDE RECORDS SUMMARY | 2018-05-09 07:21 | XMS REPORT ---
Author Author Tre Churchill [facility] Address [address] [place], [place] [address] Care Team Providers Care Hide Cooking Operator Name Role Phone Tre Churchill PCP Unavailable Allergies and Adverse Reactions Name Reaction Notes NO KNOWN DRUG ALLERGIES Plan of Treatment Planned Activity Comments Planned Date Planned Time Plan/Goal GLYCOSYLATED HEMOGLOBIN TEST 09/21/2015 12:00 AM LIPID PANEL 09/21/2015 12:00 AM COMPLETE CBC W/AUTO DIFF WBC 09/21/2015 12:00 AM COMPREHEN METABOLIC PANEL 09/21/2015 12:00 AM MICROALBUMIN QUANTITATIVE 09/21/2015 12:00 AM COMPLETE CBC W/AUTO DIFF WBC 03/12/2012 12:00 [...] CBC W/AUTO DIFF WBC 08/12/2014 12:00 AM LIPID PANEL 10/20/2014 12:00 AM Medications Active Name Start Date [...] BY MOUTH ONCE A DAY Fish Oil [place] 3-6-9 300-1,000 mg oral capsule,delayed release(DR/EC) take [...] use 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 Tobacco Former smoker stopped 05/23/10 History of Procedures Date Ordered Description Order Status 08/10/2011 12:00 AM ELECTROCARDIOGRAM COMPLETE Reviewed 08/10/2011 [...] Reviewed 10/15/2009 12:00 AM Kenalog 40 Mg Im-[facility]#5538-8224-68 Reviewed 02/03/2014 12:00 AM GLYCOSYLATED HEMOGLOBIN TEST [...] COMPREHEN METABOLIC PANEL Reviewed 10/20/2014 12:00 AM GLYCOSYLATED HEMOGLOBIN [...] Number Policy Group Number Start Date [facility] [id number] Sunday, 2010 History of Encounters Visit Date [...] Office visit Tre Churchill DO 08/10/2011 [facility] William Jeffries MD 08/10/2011 Office visit Tre [...]
--- OUTSIDE RECORDS SUMMARY | 2018-05-09 07:22 | XMS REPORT ---
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 Tobacco [...] Reviewed 10/15/2009 12:00 AM Kenalog 40 Mg Im-[facility]#[id number] Reviewed 02/03/2014 12:00 AM GLYCOSYLATED HEMOGLOBIN TEST [...] Number Start Date Medicare RHC Medicare RHC [id number] N/A Cigna Medicare Supplement Cigna Medicare Supplement [id number] N/A BCBS Bcbs [facility] [id number] Sunday, 2010 Medicare Part A Medicare - Lab/Xray [id number] N/A History of Encounters Visit Date Visit [...] 03/26/2012 Office visit Tre Zhao DO 08/10/2011 [facility] William Jeffries MD 08/10/2011 Office visit Tre Zhao DO 07/13/2011 Office visit Tre Zhao DO 06/26/2011 Office visit Erna Garza APRN 04/05/2011 Procedures Moe Norris MD 03/16/2011 Office visit Tre Hzao DO 11/07/2010 Office visit Tre Zhao DO [...]
--- OUTSIDE RECORDS SUMMARY | 2018-05-09 07:23 | XMS REPORT ---
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
--- OUTSIDE RECORDS SUMMARY | 2018-05-09 07:24 | XMS REPORT ---
Author Author Tre Churchill [facility] Address [address] [place], [place] [address] Care Team Providers Care Strawhat Inspector And Packer Name Role Phone Tre Churchill PCP Unavailable Tre Churchill PreferredProvider Unavailable Allergies and Adverse Reactions Name Reaction Notes NO KNOWN DRUG ALLERGIES Plan of Treatment Planned Activity Comments Planned Date Planned Time Plan/Goal CMP (comprehensive metabolic panel) 02/27/2017 12:00 AM Hgb A1c 02/27/2017 12:00 AM Microalbumin urine 02/27/2017 12:00 AM VITAMIN B12 02/27/2017 12:00 AM Medications Active Name Start Date [...] ONCE DAILY IN THE EVENING Fish Oil [place] 3-6-9 300-1,000 mg oral capsule,delayed release(DR/EC) 2014 [...] TAKE ONE TABLET BY MOUTH ONCE DAILY [facility] Ultra Test miscellaneous strip 05/27/2016 TEST GLUCOSE [...] ONCE DAILY venlafaxine 75 mg oral tablet 10/18/2016 04/16/2017 take 1 tablet (75 mg) by oral route 2 times per day with food for 30 days simvastatin 40 mg oral tablet 11/12/2016 TAKE [...] route 2 times a day as needed Name Start Date Expiration Date SIG Comments [...] once daily for 30 days Too expensive Invokana 100 mg oral tablet 08/29/2016 10/18/2016 [...] denies alcohol use 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
--- OUTSIDE RECORDS SUMMARY | 2018-05-09 07:25 | XMS REPORT ---
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 Tobacco Former [...] Reviewed 10/15/2009 12:00 AM Kenalog 40 Mg Im-[facility]#2493-8623-07 Reviewed 02/03/2014 12:00 AM GLYCOSYLATED HEMOGLOBIN TEST [...] 8:05AM Cutaneous candidiasis Oct 18 2016 8:05AM Payers Insurance Name Company Name Plan Name Plan Number Policy Number Policy Group Number Start Date Medicare RHC Medicare RHC [id number] N/A Medicare Part A Medicare - Lab/Xray [id number] N/A BCBS Bcbs [facility] [id number] Sunday, October 03, 2010 History of Encounters [...] visit Lynette HEART 08/02/2010 Office visit Lynette Hollis PA 06/30/2010 Office visit Lynette HEART 06/07/2010 Office visit Lynette Hollis PA 02/04/2010 Office visit Steff HEART 01/17/2010 Office visit Moe Moon DO 10/15/2009 Office visit Moe Moon DO 08/09/2009 Office visit Moe Moon DO 07/29/2009 Office visit Moe Moon DO
--- OUTSIDE RECORDS SUMMARY | 2018-05-09 07:26 | XMS REPORT ---
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 Tobacco [...] Reviewed 01/03/2018 12:00 AM LIPID PANEL Reviewed 01/11/2018 12:00 AM BX BREAST 1ST LESION US IMAG Reviewed 03/27/2013 12:00 AM GLYCOSYLATED HEMOGLOBIN TEST Reviewed 03/27/2013 12:00 AM LIPID PANEL Reviewed 03/27/2013 12:00 AM COMPLETE CBC W/AUTO DIFF WBC Reviewed 03/27/2013 12:00 AM COMPREHEN METABOLIC PANEL Reviewed 10/15/2009 12:00 AM THER/PROPH/DIAG INJ SC/IM Reviewed 10/15/2009 12:00 AM Kenalog 40 Mg Im-[facility]#2174-6341-56 Reviewed 02/03/2014 12:00 AM GLYCOSYLATED HEMOGLOBIN TEST [...] Entered NE ADACEL Not Entered Not Entered 3/23/ 2016 11/05/2018 115 Pneumococcal 01/26/2016 Not Entered NE Pneumovax [...] Number Start Date Medicare RHC Medicare RHC [id number] N/A Cigna Medicare Supplement Cigna Medicare Supplement [id number] N/A BCBS Bcbs [facility] [id number] Sunday, 2010 Medicare Part A Medicare - Lab/Xray [id number] N/A History of Encounters Visit Date Visit Type Provider 01/01/2018 Office visit Tre Churchill DO 09/09/2017 Office visit Cole De Leon NP 02/27/2017 Office visit Tre Zhao DO 10/18/2016 Office visit Tre Zhao DO 01/18/2016 Office visit Tre Zhao DO 10/14/2015 Office visit Tre Zhao DO 10/20/2014 Office visit Tre Zhao DO 06/11/2014 Office visit Tre Zhao DO 05/29/2014 Office visit Rom REYESC 04/09/2014 Office visit Tre Zhao DO 02/10/2014 Office visit Tre Zhao DO 07/10/2013 Office visit Tre Zhao DO 06/17/2013 Office visit Tre Zhao DO 05/29/2013 Office visit Tre Zhao DO 04/03/2013 Office visit Tre Zhao DO 06/27/2012 Office visit Tre Zhao DO 03/26/2012 Office visit Tre Zhao DO 08/10/2011 [facility] William Jeffries MD 08/10/2011 Office visit [...]
--- OUTSIDE RECORDS SUMMARY | 2018-05-09 07:27 | XMS REPORT ---
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 Tobacco Former [...] Reviewed 10/15/2009 12:00 AM Kenalog 40 Mg Im-[facility]#7415-9510-08 Reviewed 02/03/2014 12:00 AM GLYCOSYLATED HEMOGLOBIN TEST [...] Group Number Start Date [facility] [id number] Sunday, 2010 History of Encounters Visit Date [...] 03/26/2012 Office visit Tre Zhao DO 08/10/2011 [facility] William Jeffries MD 08/10/2011 Office visit Tre Zhao DO 07/13/2011 Office visit Tre Zhao DO 06/26/2011 Office visit Erna Garza APRN 04/05/2011 Procedures Moe Norris MD 03/16/2011 Office visit Tre Zhao DO 11/07/2010 Office visit Tre Zhao DO 10/03/2010 Office visit Tre Savagete DO 09/23/2010 Nurse visit Lynette HEART 09/13/2010 Office visit Lynette HEART 08/02/2010 Office visit Lynette HEART 06/30/2010 Office visit Lynette HEART 06/07/2010 Office visit Lynette HEART 02/04/2010 Office visit Steff HEART 01/17/2010 Office visit Moe Moon DO 10/15/2009 Office visit Moe Moon DO 08/09/2009 Office visit Moe Moon DO 07/29/2009 Office visit Moe Moon DO
--- OUTSIDE RECORDS SUMMARY | 2018-05-09 07:29 | XMS REPORT ---
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 [id number] Sunday, 2010 History of Encounters Visit Date [...] 03/26/2012 Office visit Tre Churchill DO 08/10/2011 [facility] William Jeffries MD 08/10/2011 Office visit [...]
--- OUTSIDE RECORDS SUMMARY | 2018-05-09 07:30 | XMS REPORT ---
Author Author Tre Churchill [facility] Address [address] [place], [place] [address] Care Team Providers Care Maintenance Director Name Role Phone Tre Churchill PCP Unavailable [...] ONCE DAILY IN THE EVENING Fish Oil [place] 3-6-9 300-1,000 mg oral capsule,delayed release(DR/EC) 2014 [...] (25 mg) by oral route at bedtime Tricor 145 mg oral tablet 01/18/2016 01/12/2017 take 1 tablet (145 mg) by oral route once daily for 30 days Name Start Date Expiration [...] morning for 30 days Never filled rx Problem List Description Status Onset Anemia Active [...] denies alcohol use 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
--- OUTSIDE RECORDS SUMMARY | 2018-05-09 07:34 | XMS REPORT ---
Author Author Tre Churchill [facility] Address [address] [place], [place] [address] Care Team Providers Care Zoning Administrator Name Role Phone Tre Churchill PCP Unavailable Tre Churchill PreferredProvider Unavailable Allergies and Adverse Reactions Name Reaction Notes NO KNOWN DRUG ALLERGIES Plan of Treatment Planned Activity Comments Planned Date Planned Time Plan/Goal CBC with Auto 03/12/2012 12:00 AM Comprehensive [...] ONCE DAILY IN THE EVENING Fish Oil [place] 3-6-9 300-1,000 mg oral capsule,delayed release(DR/EC) 2014 [...] DAILY nystatin 100,000 unit/gram topical cream 10/18/2016 apply to the affected area(s) by topical route 3 times per day Janumet XR 50-1,000 mg oral tablet, ER multiphase 24 hr 10/18/2016 04/16/2017 take 2 tablets by oral route once daily with evening meal, swallowing whole. 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
--- OUTSIDE RECORDS SUMMARY | 2018-05-09 07:39 | XMS REPORT ---
Author Author Tre Churchill [facility] Address [address] [place], [place] [address] Care Team Providers Care Vice President Tax Name Role Phone Tre Churchill PCP Tre [...] daily in the evening for [address] 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 Tobacco [...] Reviewed 10/15/2009 12:00 AM Kenalog 40 Mg Im-[facility]#4599-8643-23 Reviewed 02/03/2014 12:00 AM GLYCOSYLATED HEMOGLOBIN TEST [...] Number Policy Group Number Start Date Medicare [facility] Medicare [facility] [id number] N/A Cigna Medicare Supplement Cigna Medicare Supplement [id number] N/A [facility] [id number] Sunday, 2010 Medicare Part A Medicare - Lab/Xray [id number] N/A History of Encounters Visit Date Visit [...] 03/26/2012 Office visit Tre Zhao DO 08/10/2011 [facility] William Jeffries MD 08/10/2011 Office visit [...]
--- OUTSIDE RECORDS SUMMARY | 2018-05-09 07:43 | XMS REPORT ---
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
--- OUTSIDE RECORDS SUMMARY | 2018-05-09 07:44 | XMS REPORT ---
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
[2018-05-09] MEDS: LACTATED RINGERS 1,000 ML IV PRN ×2 (07:45→12:34)
[2018-05-09 07:46] VITALS: BP 158/63
--- OUTSIDE RECORDS SUMMARY | 2018-05-09 07:49 | XMS REPORT ---
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
--- OUTSIDE RECORDS SUMMARY | 2018-05-09 07:50 | XMS REPORT ---
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 Tobacco Former [...] 10/15/2009 12:00 AM Kenalog 40 Mg Im-[facility]#7609-6158-01 Reviewed 02/03/2014 12:00 AM GLYCOSYLATED HEMOGLOBIN TEST [...] Policy Number Policy Group Number [facility] [id number] Sunday, 2010 History of Encounters Visit Date Visit Type Provider 01/18/2016 Office visit Tre Churchill DO 10/14/2015 Office visit Tre Churchill DO 10/20/2014 Office visit Tre Churchill DO 06/11/2014 Office visit Tre Churchill DO 05/29/2014 Office visit Rom Barrett PA-C 04/09/2014 Office visit Tre Savagete DO 02/10/2014 Office visit Tre Zhao DO 07/10/2013 Office visit Tre Zhao DO 06/17/2013 Office visit Tre Zhao DO 05/29/[address] Zhao DO 04/03/2013 Office visit Tre Zhao DO 06/27/2012 Office visit Tre Zhao DO 03/26/2012 Office visit Tre Churchill DO 08/10/2011 [facility] William Jeffries MD 08/10/2011 [...] Office visit Lynette HEART 06/07/2010 Office visit Lnyette HEART 02/04/2010 Office visit Steff HEART 01/17/2010 Office visit Moe Moon DO 10/15/2009 Office visit Moe Moon DO 08/09/2009 Office visit Moe Moon DO 07/29/2009 Office visit Moe Moon DO
--- OUTSIDE RECORDS SUMMARY | 2018-05-09 07:52 | XMS REPORT ---
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 Tobacco Former [...] Reviewed 10/15/2009 12:00 AM Kenalog 40 Mg Im-[facility]#7697-2151-30 Reviewed 02/03/2014 12:00 AM GLYCOSYLATED HEMOGLOBIN TEST [...] Number Policy Group Number Start Date BCBS [facility] [id number] Sunday, 2010 History of Encounters Visit Date Visit Type Provider 01/18/2016 Office visit Tre Churchill DO 10/14/2015 Office visit Tre Churchill DO 10/20/2014 Office visit Tre Zhao DO 06/11/2014 Office visit Tre Zhao DO 05/29/2014 Office visit Rom Barrett PA-C 04/09/2014 Office visit Tre Zhao DO 02/10/2014 Office visit Tre Zhao DO 07/10/2013 Office visit Tre Zhao DO 06/17/2013 Office visit Tre Zhao DO 05/29/2013 Office visit Tre Zhao DO 04/03/2013 Office visit Tre Savagete DO 06/27/2012 Office visit Tre Zhao DO 03/26/2012 Office visit Tre Churchill DO 08/10/2011 [facility] William Jeffries MD 08/10/2011 Office visit [...]
--- NOTE | 2018-05-09 08:09 | Progress Note-Pre Operative ---
Pre-Operative Progress Note H&P Reviewed The H&P was reviewed, patient examined and no changes noted. Date Seen by Provider: May 09, 2018 Time Seen by Provider: 07:55 Date H&P Reviewed: May 09, 2018 Time H&P Reviewed: 08:00 Pre-Operative Diagnosis: left breast mass PRABHAKAR RAMOS APRN May 09, 2018 8:09 am
[2018-05-09] MEDS ORDERED: BUP/EPI 0.5% 1:200,000 (SENSORCAINE) 30 ML VIAL ONE (09:10)
[2018-05-09] MEDS ORDERED: FAMOTIDINE 20MG/2ML IV (PEPCID) IVP ONE (09:30)
[2018-05-09] MEDS ORDERED: FAMOTIDINE 20MG/2ML IV (PEPCID) ONE (09:32)
[2018-05-09] MEDS ORDERED: ACETAMINOPHEN 325 MG TABLET PO PRN (10:30)
[2018-05-09] MEDS ORDERED: ONDANSETRON 4 MG/2 ML (SDV) Z0FRAN IVP PRN ×2 (10:30→13:00)
[2018-05-09] MEDS ORDERED: HYDROcodone/APAP 5 MG/325 MG (LORTAB) TAB PO ONE (10:30)
[2018-05-09] MEDS ORDERED: morphine INJ 10 MG/ML 1ML (SYR OR VIAL) IVP PRN (10:30)
[2018-05-09] MEDS ORDERED: ONDANSETRON 4 MG/2 ML (SDV) Z0FRAN ONE (10:53)
[2018-05-09] MEDS ORDERED: LIDOCAINE PF 2% 5 ML (XYLOCAINE) VIAL ONE (10:53)
[2018-05-09] MEDS ORDERED: proPOfol 200 MG/20 ML (DIPRIVAN) VIAL IV ONE (10:53)
[2018-05-09] MEDS ORDERED: fentaNYL INJECTION 100 MCG/2 ML AMP ONE ×2 (10:54→11:46)
[2018-05-09] MEDS ORDERED: MIDAZOLAM 2 MG/2 ML (VERSED) VIAL ONE (10:54)
--- NOTE | 2018-05-09 10:54 | Diagnostic Imaging Report ---
INDICATION: Left breast mass. A total of 1.0 mCi of filtered sulfur colloid was injected in 4 separate aliquots in a periareolar distribution of the left breast. Imaging was performed. The imaging does show 2 areas of uptake in the left axilla consistent with sentinel nodes. These were marked on the patient's skin and the patient was sent to the OR. IMPRESSION: Left breast lymphoscintigraphy and sentinel lymph node identification, as described. Dictated by: Dictated on workstation # [id number]
[2018-05-09] MEDS ORDERED: SEVOFLURANE (ULTANE) 15 ML INHAL SOLN ONE ×4 (10:57→12:27)
[2018-05-09] MEDS ORDERED: ROCURONIUM 10 MG/ML 5 ML SYRINGE IV ONE (10:58)
[2018-05-09] MEDS ORDERED: INDIGO CARMINE 8 MG/ML 5 ML AMP ONE (10:58)
[2018-05-09] MEDS ORDERED: GLYCOPYRROLATE 0.2 MG/ML (ROBINUL) 2 ML VIAL ONE (11:33)
--- NOTE | 2018-05-09 12:29 | Progress Note-Post Operative ---
Post-Operative Progess Note Surgeon (s)/Oil Rig Roughneck (s) Surgeon NARAYAN DE MD Oil Rig Roughneck: blossom rodgers CLIENT SERVICE COORDINATOR Pre-Operative Diagnosis left breast mass Post-Operative Diagnosis same Procedure & Operative Findings Date of Procedure 05/09/18 Procedure Performed/Findings left breast lumpectomy. Anesthesia Type general LMA Estimated Blood Loss Estimated blood loss (mL): minimal Specimens/Packing Specimens Removed left breast mass NARAYAN DE MD May 09, 2018 12:29
[2018-05-09] MEDS ORDERED: HYDR-34 PO (12:31)
--- NOTE | 2018-05-09 12:35 | Discharge Inst-Surgical ---
D/C Lap Instructions-KIDTrace New, Converted, or Re-Newed RX: RX on Chart Follow Up Appt in 2 weeks Activity as tolerated Regular Diet Symptoms to Report: Fever over 101 degree F, Nausea/Vomiting Infection Signs and Symptoms to report: Increased redness, Foul odor of wound, Increased drainage Bathing instructions: May shower Operative Area Clean/Dry; Keep incision clean/dry If any problems/questions: Contact your physician or go to Emergency Room NARAYAN DE MD May 09, 2018 12:35
[2018-05-09] MEDS ORDERED: HYDROmorphone 1 MG/ML (DILAUDID) 1 ML SYRINGE IV PRN (13:00)
[2018-05-09] MEDS ORDERED: fentaNYL INJECTION 100 MCG/2 ML AMP IVP PRN (13:00)
[2018-05-09 13:40] VITALS: BP 136/58
[2018-05-09 14:10] VITALS: BP 122/59
[2018-05-09] MEDS ORDERED: HYDROcodone/APAP 5 MG/325 MG (LORTAB) TAB ONE (14:25)
--- NOTE | 2018-05-09 14:26 | Anesthesia-General Post-Op ---
General Patient Condition Mental Status/LOC: Same as Preop Cardiovascular: Satisfactory Nausea/Vomiting: Absent Respiratory: Satisfactory Pain: Controlled Complications: Absent Post Op Complications Complications None Follow Up Care/Instructions Patient Instructions None needed. Anesthesia/Patient Condition Patient Condition Patient is doing well, no complaints, stable vital signs, no apparent adverse anesthesia problems. No complications reported per nursing. D/C home per [facility] Criteria: No MARY SEBASTIAN CRNA May 09, 2018 14:26
[2018-05-09 14:40] VITALS: BP 131/66
[2018-05-09 15:10] VITALS: BP 158/63
--- NOTE | 2018-05-09 21:41 | OPERATIVE REPORT ---
DATE OF SERVICE: 05/09/2018 ATTENDING PRIMARY CARE PHYSICIAN: Dr. Churchill. PREOPERATIVE DIAGNOSIS: Palpable mass, left breast approximately 3 to 4 cm in size. POSTOPERATIVE DIAGNOSIS: Palpable mass, left breast approximately 3 to 4 cm in size. PROCEDURE: Left breast lumpectomy with preemptive lymphoscintigraphy and intermediate wound closure 4cm. SURGEON: Dr. Narayan De. ANESTHESIA: General laryngeal mask airway. ESTIMATED BLOOD LOSS: Minimal. FINDINGS: Hard mass approximately 4 cm in size of the left upper outer quadrant of the breast. A frozen section was performed, which was preliminarily negative. DISPOSITION: The patient tolerated the procedure well. INDICATIONS: The patient is a 68-year-old female with a palpable left breast mass. She states that she noticed this approximately 6 months ago and was initially small; however, has grown larger in size. She has undergone yearly mammograms since ages 41 through 61 with no mammographic lesions identified. She states that her last mammogram was approximately 3 years ago and believes that to be normal. She does not report any abnormal nipple discharge, skin dimpling or any breast asymmetries. She also does not report any previous biopsies in the past. She began menses at around age 15, menopause around age 51 and has had 3 live pregnancies with no for any children. She did take oral contraceptive pills for a span of approximately 25 years. The lesion was approximately at the 1 o'clock position approximately 4 cm in size and hard. DESCRIPTION OF PROCEDURE: The patient was brought to the operating room, laid supine on the table. After adequate IV pain and sedating medications and general laryngeal mask airway intubation, the chest was prepped and draped in standard surgical fashion. A 0.5% Marcaine with epinephrine was used to anesthetize overlying skin in the left upper abdominal quadrant. A small transverse skin incision made. A crescent-shaped skin incision was made using a 15 blade. The subcutaneous tissue was then dissected out using electrocautery to the breast tissue. The lesion was identified and completely cored out with a rim of normal appearing breast tissue using electrocautery and using Laura clamps as well as [place] for retraction. The lesion was close to the chest wall; however, not encompassing it. The specimen was sent to pathology. The preliminary frozen section examination of the lesion was benign fibrocystic disease with an intracystic inclusions; however, no atypia, DCIS or malignancy identified. The wound was examined, irrigated and suctioned with visualization of good hemostasis. The fibrofatty tissue was then loosely reapproximated using 3-0 Vicryl interrupted sutures. Subcutaneous tissue was then reapproximated using 3-0 Vicryl suture and the skin was closed using 4-0 Monocryl running subcuticular suture. Wound was then cleaned and covered with Dermabond. The patient tolerated the procedure well. We will await the final pathology results and have her continue to apply pressure to the area for the next two weeks to prevent seroma formation. Job ID: [id number] DocumentID: [id number] Dictated Date: 05/09/2018 12:45:55 Kelly Machine Operator Date: 05/09/2018 21:40:41 Dictated By: NARAYAN DE MD MTDD
== END 2018-05-09 15:10 | disposition home or self-care (01) ==
LOC: CARD 07:03
PROVIDERS: ATTEND Surgery
DX: C50.412 Malignant neoplasm of upper-outer quadrant of left female breast (principal); I10 Essential (primary) hypertension; G47.33 Obstructive sleep apnea (adult) (pediatric); E11.43 Type 2 diabetes mellitus with diabetic autonomic (poly)neuropathy; Z87.891 Personal history of nicotine dependence; Z79.82 Long term (current) use of aspirin; Z79.899 Other long term (current) drug therapy
CPT/HCPCS: 78195; 82962; 87081

== ENCOUNTER 2018-06-03 09:30 | Outpatient (CLI) | payer MEDICARE, OTHER ==
[~2018-06-03] VITALS: Ht 170.2 cm; Wt 90.7 kg
[~2018-06-03 09:30] MED LIST changes: +HYDR-34 PO
[2018-06-06] MEDS ORDERED: HYDR-34 PO (13:38)
== END 2018-06-03 10:02 | disposition home or self-care (01) ==
LOC: PREOP 09:30
PROVIDERS: ATTEND Surgery
DX: Z01.818 Encounter for other preprocedural examination (principal); C50.912 Malignant neoplasm of unspecified site of left female breast

== ENCOUNTER 2018-06-06 06:38 | Day surgery (SDC) | payer MEDICARE, OTHER ==
[~2018-06-06] VITALS: Ht 170.2 cm; Wt 90.7 kg
--- OUTSIDE RECORDS SUMMARY | 2018-06-06 06:43 | XMS REPORT ---
Author Author Tre Churchill [facility] Address [address] [place], [place] [id number] Care Team Providers Care Tipple Engineer Name Role Phone Tre Churchill PCP Tre [...] route 2 times a day as needed atenolol 100 mg oral tablet 07/03/2017 06/28/2018 TAKE ONE TABLET BY MOUTH ONCE DAILY nortriptyline 25 mg oral capsule 07/16/2017 01/07/2019 TAKE ONE CAPSULE BY MOUTH AT BEDTIME [employer] BLUE TEST STP 07/23/2017 03/15/2019 TEST GLUCOSE ONCE A DAY OneTouch Ultra Test miscellaneous strip 07/24/2017 Test glucose once a day Dx:e11.9 Fish Oil 360-1,200 mg oral capsule 01/04/2018 take 2 capsules by oral route 2 times a day gabapentin 600 mg oral tablet 03/01/2018 08/28/2018 take 1 tablet by oral route 2 times a day for 30 days fenofibrate nanocrystallized 145 mg oral tablet 05/13/2018 TAKE 1 TABLET BY MOUTH DAILY Invokamet 150-1,000 mg oral tablet 05/13/2018 TAKE 1 TABLET BY MOUTH TWICE DAILY WITH FOOD Name Start Date Expiration Date SIG Comments [...] oral route once daily for 5 days fenofibrate 150 mg oral capsule 05/17/2017 05/12/2018 take 1 capsule (150 mg) by oral route once daily with food for 90 days montelukast 10 mg oral tablet 07/01/2017 10/29/2017 TAKE ONE TABLET BY MOUTH ONCE DAILY IN THE EVENING Augmentin 500-125 mg oral tablet 09/09/2017 09/19/2017 take 1 tablet by oral route every 12 hours for 10 days Klor-Con M20 20 mEq oral tablet,ER particles/crystals 11/12/2017 11/12/2017 TAKE ONE TABLET BY MOUTH ONCE DAILY simvastatin 40 mg oral tablet 11/19/2017 11/19/2017 TAKE ONE TABLET BY MOUTH ONCE DAILY IN THE EVENING dicyclomine 10 mg oral capsule 02/25/2018 05/26/2018 take 1 capsule by oral route once a day (in the morning) for 90 days venlafaxine 150 mg oral tablet extended release 24hr 02/25/2018 05/26/2018 take 1 tablet (150 mg) by oral route once daily in the morning at the same time each day with food for 90 days Discontinued Name Start Date [...] 30 days Duplicare medication on list Black ZIMPERIUMosh Oral 07/13/2011 one daily no longer taking [...] substance abuse denies alcohol use 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 Tobacco Former [...] LESION US IMAG Reviewed 04/16/2018 12:00 AM MAMMOGRAPHY, UNILATERAL, DX DIGITAL Reviewed 04/16/2018 12:00 AM Breast ultrasound Reviewed 03/27/2013 12:00 AM GLYCOSYLATED HEMOGLOBIN TEST Reviewed 03/27/2013 12:00 AM LIPID PANEL Reviewed 03/27/2013 12:00 AM COMPLETE CBC W/AUTO DIFF WBC Reviewed 03/27/2013 12:00 AM COMPREHEN METABOLIC PANEL Reviewed 10/15/2009 12:00 AM THER/PROPH/DIAG INJ SC/IM Reviewed 10/15/2009 12:00 AM Kenalog 40 Mg Im-[facility]#[id number] Reviewed 02/03/2014 12:00 AM GLYCOSYLATED HEMOGLOBIN TEST [...] Number Start Date Medicare RHC Medicare RHC [id number] N/A Cigna Medicare Supplement Cigna Medicare Supplement [id number] N/A BCBS Bcbs [facility] [id number] Sunday, 2010 Medicare Part A Medicare - Lab/Xray [id number] N/A History of Encounters Visit Date Visit [...]
--- OUTSIDE RECORDS SUMMARY | 2018-06-06 06:44 | XMS REPORT ---
Author Author Ter Churchill [facility] Address [address] [place], [place] [id number] Care Team Providers Care Psych Therapist Name Role Phone Tre Churchill PCP Unavailable [...] ONCE DAILY IN THE EVENING Fish Oil Gustine 3-6-9 300-1,000 mg oral capsule,delayed release(DR/EC) 2014 [...] 30 days Duplicare medication on list Black Ak?Lexosh Oral 07/13/2011 one daily no longer taking [...] AM Kenalog 40 Mg Im-[facility]#[id number] Reviewed 02/03/2014 12:00 AM GLYCOSYLATED HEMOGLOBIN TEST [...] Group Number Start Date BCBS [facility] [place] [id number] Sunday, 2010 History of Encounters Visit Date [...] 03/26/2012 Office visit Tre Churchill DO 08/10/2011 [facility] William Jeffries MD 08/10/2011 Office visit [...]
--- OUTSIDE RECORDS SUMMARY | 2018-06-06 06:45 | XMS REPORT ---
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 [id number] Sunday, 2010 History of Encounters Visit Date [...] 03/26/2012 Office visit Tre Churchill DO 08/10/2011 [facility] William Jeffries MD [...]
--- OUTSIDE RECORDS SUMMARY | 2018-06-06 06:46 | XMS REPORT ---
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 Tobacco [...] AM Kenalog 40 Mg Im-[facility]#[id number] Reviewed 02/03/2014 12:00 AM GLYCOSYLATED HEMOGLOBIN TEST [...] Number Start Date Medicare RHC Medicare RHC [id number] N/A Cigna Medicare Supplement Cigna Medicare Supplement [id number] N/A BCBS Bcbs [facility] [id number] Sunday, 2010 Medicare Part A Medicare - Lab/Xray [id number] N/A History of Encounters Visit Date Visit Type Provider 01/01/2018 Office visit Tre Churchill DO 09/09/2017 Office visit Cole De Leon NP 02/27/2017 Office visit Tre Zhao DO 10/18/2016 Office visit Tre Zhao DO 01/18/2016 Office visit Tre Zhao DO 10/14/2015 Office visit Tre Zhao DO 10/20/2014 Office visit Tre Zhao DO 06/11/2014 Office visit Ter Zhao DO 05/29/2014 Office visit oRm REYESC 04/09/2014 Office visit Tre Zhao DO 02/10/2014 Office visit Tre Zhao DO 07/10/2013 Office visit Tre Zhao DO 06/17/2013 Office visit Tre Zhao DO 05/29/2013 Office visit Tre Zhao DO 04/03/2013 Office visit Tre Zhao DO 06/27/2012 Office visit Tre Zhao DO 03/26/2012 Office visit Tre Zhao DO 08/10/2011 [facility] William Jeffries MD 08/10/2011 Office visit [...]
--- OUTSIDE RECORDS SUMMARY | 2018-06-06 06:47 | XMS REPORT ---
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 [...] Reviewed 10/15/2009 12:00 AM Kenalog 40 Mg Im-[facility]#[id number] Reviewed 02/03/2014 12:00 AM GLYCOSYLATED HEMOGLOBIN TEST [...] Number Start Date Medicare RHC Medicare RHC [id number] N/A Cigna Medicare Supplement Cigna Medicare Supplement [id number] N/A [facility] [id number] Sunday, 2010 Medicare Part A Medicare - Lab/Xray [id number] N/A History of Encounters Visit Date Visit Type Provider 01/01/2018 Office visit Tre Churchill DO 09/09/2017 Office visit Cole De Leon NP 02/27/2017 Office visit Tre Churchill DO 10/18/2016 Office visit Tre Partidahite DO 01/18/2016 Office visit Tre Zhao DO [...] 03/26/2012 Office visit Tre Zhao DO 08/10/2011 [facility] William Jeffries MD 08/10/2011 Office visit Tre Zhao DO 07/13/2011 Office visit Tre Zhao DO 06/26/2011 Office visit Erna Garza APRN 04/05/2011 Procedures Moe Norris MD 03/16/2011 Office visit Tre Zhao DO 11/07/2010 Office visit Tre Zhao DO 10/03/2010 Office visit rTe Zhao DO 09/23/2010 Nurse visit Lynette HEART 09/13/2010 Office visit Lynette HEART 08/02/2010 Office visit Lynette HEART 06/30/2010 Office visit Lynette HEART 06/07/2010 Office visit Lynette HEART 02/04/2010 Office visit Steff HEART 01/17/2010 Office visit Moe Moon DO 10/15/2009 Office visit Moe Moon DO 08/09/2009 Office visit Moe Moon DO 07/29/2009 Office visit Moe Moon DO
--- OUTSIDE RECORDS SUMMARY | 2018-06-06 06:48 | XMS REPORT ---
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#[id number] Reviewed 02/03/2014 12:00 AM GLYCOSYLATED HEMOGLOBIN TEST [...] 0.24 #BASO 0.11 MANUAL DIFF NOT IND MICROALBUMIN UR 10.0 ug/mLVITAMIN B12 354.0 pg/mLHGB [...] Mellitus, Type II Jan 03 2018 9:52AM Payers Insurance Name Company Name Plan Name Plan Number Policy Number Policy Group Number Start Date Medicare RHC Medicare RHC [id number] N/A Cigna Medicare Supplement Cigna Medicare Supplement [id number] N/A BCBS Bcbs [facility] [id number] Sunday, 2010 Medicare Part A Medicare - Lab/Xray [id number] N/A History of Encounters Visit Date Visit [...]
--- OUTSIDE RECORDS SUMMARY | 2018-06-06 06:49 | XMS REPORT ---
Author Author Tre Churchill [facility] Address [address] [place], [place] [address] Care Team Providers Care Marine Oil Terminal Superintendent Name Role Phone Tre Churchill PCP Unavailable [...] ONCE DAILY IN THE EVENING Fish Oil [place] 3-6-9 300-1,000 mg oral capsule,delayed release(DR/EC) 2014 [...] TAKE ONE TABLET BY MOUTH ONCE DAILY Janumet XR 50-1,000 mg oral tablet, ER [...] TAKE ONE TABLET BY MOUTH ONCE DAILY fluconazole 100 mg oral tablet 11/22/2016 12/02/2016 take 1 tablet (100 mg) by oral route once daily for 5 days Name Start Date Expiration Date SIG [...] by topical route 3 times per day Problem List Description Status Onset Anemia Active [...] Reviewed 10/15/2009 12:00 AM Kenalog 40 Mg Im-[facility]#7487-3101-47 Reviewed 02/03/2014 12:00 AM GLYCOSYLATED HEMOGLOBIN TEST [...] Policy Number Policy Group Number [id number] Sunday, 2010 History of Encounters Visit Date Visit Type Provider 10/18/2016 Office visit Tre Churchill DO 01/18/2016 [...]
--- OUTSIDE RECORDS SUMMARY | 2018-06-06 06:50 | XMS REPORT ---
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 Tobacco Former [...] Reviewed 10/15/2009 12:00 AM Kenalog 40 Mg Im-[facility]#9910-9666-24 Reviewed 02/03/2014 12:00 AM GLYCOSYLATED HEMOGLOBIN TEST [...] Number Start Date Medicare RHC Medicare RHC [id number] N/A Cigna Medicare Supplement Cigna Medicare Supplement [id number] N/A [facility] [id number] Sunday, 2010 Medicare Part A Medicare - Lab/Xray [id number] N/A History of Encounters Visit Date Visit Type Provider 01/01/2018 Office visit Tre Churchill DO 09/09/2017 Office visit Cole De Leon NP 02/27/2017 Office visit Tre Churchill DO 10/18/2016 Office visit Tre Zhao DO 01/18/2016 Office visit Tre Zhao DO 10/14/2015 Office visit Tre Zhao DO 10/20/[address] Zhao DO 06/11/2014 Office visit Tre Zhao [...] visit Lynette HEART 09/13/2010 Office visit Lynette HERAT 08/02/2010 Office visit Lynette HEART 06/30/2010 Office visit Lynette HEART 06/07/2010 Office visit Lynette HEART 02/04/2010 Office visit Steff HEART 01/17/2010 Office visit Moe Moon DO 10/15/2009 Office visit Moe Moon DO 08/09/2009 Office visit Moe Moon DO 07/29/2009 Office visit Moe Moon DO
[2018-06-06] MEDS ORDERED: ceFAZolin INJECTION 1,000 MG in NS (IVPB) 50 ML IV ONE (07:00)
[2018-06-06 07:05] VITALS: BP 147/80
[2018-06-06] MEDS: LACTATED RINGERS 1,000 ML IV PRN ×2 (07:19→12:15)
[2018-06-06] MEDS ORDERED: CATHETER FLUSH 10 ML SYR IV PRN (07:30)
--- NOTE | 2018-06-06 08:04 | Progress Note-Pre Operative ---
Pre-Operative Progress Note H&P Reviewed The H&P was reviewed, patient examined and no changes noted. Date Seen by Provider: Jun 06, 2018 Time Seen by Provider: 07:50 Date H&P Reviewed: Jun 06, 2018 Time H&P Reviewed: 07:55 Pre-Operative Diagnosis: Left Breast Cancer PRABHAKAR RAMOS VEGETABLE CANNER Jun 06, 2018 8:04 am
[2018-06-06] MEDS ORDERED: FAMOTIDINE 20MG/2ML IV (PEPCID) ONE (08:55)
[2018-06-06] MEDS ORDERED: FAMOTIDINE 20MG/2ML IV (PEPCID) IV ONE (09:00)
[2018-06-06] MEDS ORDERED: BUP/EPI 0.5% 1:200,000 (SENSORCAINE) 30 ML VIAL ONE (10:41)
[2018-06-06] MEDS ORDERED: HYDROcodone/APAP 5 MG/325 MG (LORTAB) TAB PO ONE (10:45)
[2018-06-06] MEDS ORDERED: ACETAMINOPHEN 325 MG TABLET PO PRN (10:45)
[2018-06-06] MEDS ORDERED: morphine INJ 10 MG/ML 1ML (SYR OR VIAL) IVP PRN (10:45)
[2018-06-06] MEDS ORDERED: ONDANSETRON 4 MG/2 ML (SDV) Z0FRAN IVP PRN ×2 (10:45→14:00)
[2018-06-06] MEDS ORDERED: DEXAMETHASONE 10 MG/ML (DECADRON) 1 ML VIAL ONE (10:49)
[2018-06-06] MEDS ORDERED: ONDANSETRON 4 MG/2 ML (SDV) Z0FRAN ONE (10:49)
[2018-06-06] MEDS ORDERED: proPOfol 200 MG/20 ML (DIPRIVAN) VIAL IV ONE (10:49)
[2018-06-06] MEDS ORDERED: LIDOCAINE PF 2% 5 ML (XYLOCAINE) VIAL ONE (10:49)
[2018-06-06] MEDS ORDERED: MIDAZOLAM 2 MG/2 ML (VERSED) VIAL ONE (10:50)
[2018-06-06] MEDS ORDERED: fentaNYL INJECTION 100 MCG/2 ML AMP ONE ×3 (10:50→13:34)
[2018-06-06] MEDS ORDERED: GLYCOPYRROLATE 0.2 MG/ML (ROBINUL) 2 ML VIAL ONE (12:13)
--- NOTE | 2018-06-06 12:27 | Diagnostic Imaging Report ---
INDICATION: Left breast carcinoma. TECHNIQUE: A total of 1.0 mCi of filtered technetium 99m sulfur colloid was injected in four separate aliquots in a periareolar distribution of the left breast. Imaging was then performed for two hours post injection. FINDINGS: Three sentinel nodes were visualized in the left axilla which were marked on the skin. IMPRESSION: Left breast lymphoscintigraphy and sentinel node identification in the left axilla, as described. Dictated by: Dictated on workstation # [id number]
[2018-06-06] MEDS ORDERED: SEVOFLURANE (ULTANE) 15 ML INHAL SOLN ONE ×2 (12:43→13:24)
--- NOTE | 2018-06-06 13:36 | Progress Note-Post Operative ---
Post-Operative Progess Note Surgeon (s)/Automation Qtp Tester (s) Surgeon NARAYAN DE MD Automation Qtp Tester: blossom rodgers GUEST RELATIONS REPRESENTATIVE Pre-Operative Diagnosis Left Breast Cancer Post-Operative Diagnosis same Procedure & Operative Findings Date of Procedure 06/06/18 Procedure Performed/Findings re-excision left breast cancer with margin. left axillary sentinel node bx. Anesthesia Type general LMA Estimated Blood Loss Estimated blood loss (mL): minimal Specimens/Packing Specimens Removed left breast lesion, left breast sentinel node. NARAYAN DE MD Jun 06, 2018 1:36 pm
[2018-06-06] MEDS ORDERED: HYDR-34 PO (13:38)
--- NOTE | 2018-06-06 13:39 | Discharge Inst-Surgical ---
D/C Lap Instructions-KENISHA New, Converted, or Re-Newed RX: RX on Chart Follow Up Appt in 2 weeks Activity as tolerated No driving for 24 hours No driving while on pain medications Incentive Spirometry use every 2 hours while awake Regular Diet Symptoms to Report: Fever over 101 degree F, Nausea/Vomiting Infection Signs and Symptoms to report: Increased redness, Foul odor of wound, Increased drainage Bathing instructions: May shower Operative Area Clean/Dry; Keep incision clean/dry If any problems/questions: Contact your physician or go to Emergency Room NARAYAN DE MD Jun 06, 2018 1:39 pm
[2018-06-06] MEDS ORDERED: fentaNYL INJECTION 100 MCG/2 ML AMP IVP PRN (14:00)
[2018-06-06] MEDS ORDERED: MEPERIDINE (DEMEROL) INJ 50 MG/ML IVP PRN (14:00)
[2018-06-06] MEDS: HYDROmorphone 1 MG/ML (DILAUDID) 1 ML SYRINGE IV PRN ×2 (14:21→14:31)
[2018-06-06 15:00] VITALS: BP 142/65
[2018-06-06 15:30] VITALS: BP 170/75
--- NOTE | 2018-06-06 15:39 | Anesthesia-General Post-Op ---
General Patient Condition Mental Status/LOC: Same as Preop Cardiovascular: Satisfactory Nausea/Vomiting: Absent Respiratory: Satisfactory Pain: Controlled Complications: Absent Post Op Complications Complications None Follow Up Care/Instructions Patient Instructions None needed. Anesthesia/Patient Condition Patient Condition Patient is doing well, no complaints, stable vital signs, no apparent adverse anesthesia problems. SOBEIDA SAHNI DO Jun 06, 2018 15:39
[2018-06-06 16:00] VITALS: BP 144/82
--- NOTE | 2018-06-13 10:19 | OPERATIVE REPORT ---
DATE OF SERVICE: 06/06/2018 ATTENDING PRIMARY CARE PHYSICIAN: Dr. Churchill. PREOPERATIVE DIAGNOSIS: Left breast cancer. POSTOPERATIVE DIAGNOSIS: Left breast cancer. PROCEDURE: Reexcision left breast metaplasia with sentinel node biopsy of the left axilla. SURGEON: Narayan De MD MAINTENANCE MECHANIC SUPERVISOR: Damian Patel APRN. ANESTHESIA: General laryngeal mask airway. ESTIMATED BLOOD LOSS: Minimal. FINDINGS: One sentinel node was identified, which was negative on frozen section and the entire previous excision site . This was excised to obtain negative margins , which was sent to pathology. DISPOSITION: The patient tolerated the procedure well. INDICATIONS: A 68-year-old female with a breast mass. She noticed a lesion at approximately 6 months ago and had grown larger in size and hard fixed. She had been getting yearly mammograms at the age of 41 through 61 with no mammographic lesions identified. She states her last one was approximately 3 years ago and believes it to be normal. She does not report any abnormal nipple discharge, skin dimpling or any breast asymmetries. She had not had any previous breast biopsies in the past. She began menses at around age 15 and menopause at around age 51. She has had three pregnancies and three live childbirths with no of any children. She did take oral contraceptive pills for a span of approximately 25 years. The lesion was only at the 1 o'clock position of the left breast 4 cm in original size and hard. She underwent a left breast lumpectomy with preemptive lymphoscintigraphy with findings of the hard mass approximately 4 cm in size. A frozen section was performed, which was preliminarily negative. 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 On the final pathology, there was still residual anterior margin. We will proceed now with excision of the anterior margin as well as a sentinel biopsy of the left axillary lymph node basin. DESCRIPTION OF PROCEDURE: The patient was brought to the operating room, laid supine on the table. After adequate IV pain and sedative medications and general endotracheal intubation, the neck were prepped and draped in standard surgical fashion. 1% lidocaine with epinephrine was then used to anesthetize the overlying skin in the left axilla along the anterior axillary line. Using the Sabattus counter, we then proceeded to identify the sentinel node. Before this, we had also proceeded with a subdermal injection of isosulfan blue. The subcutaneous tissue was opened using cautery and the clavipectoral fascia was then opened using electrocautery. Using blunt dissection, the sentinel node was identified using the Alejandro counter with a sentinel node count of 1081 and the background 68, consistent with a sentinel node. This was also stained blue. This was sent to pathology and preliminarily negative. There is no other lymphadenopathy identified. We then proceeded with reexcision of the breast cancer mass. The previous incision site was excised in an elliptical shape using a 15 blade. We then proceeded with circumferential excision of the lesion around the scar using cautery which encompassed the upper outer quadrant of the left breast. This was sent to pathology as well. Good hemostasis was achieved using direct pressure as well as electrocautery. We then proceeded with repair of the two incisions. The breast tissue was loosely approximated using interrupted 3-0 Vicryl sutures. Subcutaneous tissue of both lesions were then reapproximated using 3-0 Vicryl sutures. Skin was closed using 4-0 Monocryl subcuticular sutures. Wounds were then cleaned and covered with Dermabond. The patient tolerated the procedure well. We will await final pathology. We will also instruct her to do no heavy lifting or any extension of the arm for the next 2 weeks. We also want her to proceed with significant support on the breast seroma formation. Job ID: [id number] DocumentID: [id number] Dictated Date: 06/06/2018 13:47:24 Aquaculture And Fisheries Professor Date: 06/06/2018 19:25:00 Dictated By: NARAYAN DE MD [facility]
== END 2018-06-06 16:00 | disposition home or self-care (01) ==
LOC: SDC 06:38
PROVIDERS: ATTEND Surgery
DX: C50.412 Malignant neoplasm of upper-outer quadrant of left female breast (principal); I10 Essential (primary) hypertension; E11.9 Type 2 diabetes mellitus without complications; G47.33 Obstructive sleep apnea (adult) (pediatric); K21.9 Gastro-esophageal reflux disease without esophagitis; Z79.82 Long term (current) use of aspirin; Z87.891 Personal history of nicotine dependence; Z79.899 Other long term (current) drug therapy
CPT/HCPCS: 78195; 82962; 87081

== ENCOUNTER → 2018-06-20 | Outpatient (CLI) | payer MEDICARE, OTHER ==
[~2018-06-20] MED LIST changes: +CATHETER FLUSH 10 ML SYR IV PRN; +IOHEXOL 350 MG/ML 100 ML (OMNIPAQUE 350) VIAL IV ONE; +NS 100 ML (IVPB) BAG IV ONE
[2018-06-20 12:06] LABS: BUN/CREATININE RATIO 26; CREATININE SERUM 0.74 MG/DL (0.60-1.30); GFR ESTIMATED > 60
--- NOTE | 2018-06-20 13:07 | Diagnostic Imaging Report ---
PROCEDURE: CT chest and abdomen with contrast. TECHNIQUE: Multiple contiguous axial images were obtained through the chest and abdomen after the administration of intravenous contrast. INDICATION: Left breast carcinoma. No prior CT studies are available for comparison. CT CHEST: The thyroid gland demonstrates several circumscribed low densities in both lobes. There are postsurgical changes in the left breast. There is some gas in the left breast tissue. There is also an area of fluid density in the lateral portion of the left breast, likely a hematoma. No axillary lymphadenopathy is seen. No internal mammary lymphadenopathy is identified. No definite hilar lymphadenopathy is seen. There is some slight subcarinal fullness measuring 2.3 x 1.4 cm. Minimally prominent lymph node in the AP window demonstrates short axis measurement of 10 mm. No pericardial or pleural fluid is identified. Parenchymal evaluation does show centrilobular emphysematous changes throughout both lungs. No parenchymal mass or infiltrate is seen. Bony structures demonstrate 2 foci of osteosclerosis involving upper thoracic vertebral bodies, approximately T2 and T3. There is also an area of sclerosis in approximately the L2 vertebral body. IMPRESSION: 1. Mildly prominent lymph nodes in the AP window and subcarinal region, indeterminate. No pulmonary parenchymal nodules are seen to suggest pulmonary metastases. There are some osseous sclerotic lesions in the thoracic and upper lumbar vertebral bodies, in which osteoblastic metastases cannot be entirely excluded. Correlation with bone scan would be useful. Followup CT chest or PET scan may be useful to followup mediastinal adenopathy. CT ABDOMEN: The liver demonstrates generalized low density consistent with hepatic steatosis. No discrete liver mass is identified. The gallbladder is unremarkable. The pancreas and spleen are unremarkable. No adrenal mass is identified. The kidneys are unremarkable. The aorta is heavily calcified but not aneurysmal. No central retroperitoneal or mesenteric lymphadenopathy is seen. Bowel loops are nonobstructed. There is moderate stool in colon. There is no ascites. IMPRESSION: 1. Hepatic steatosis. 2. No findings to suggest abdominal metastatic disease. Dictated by: Dictated on workstation # [id number]
--- NOTE | 2018-06-20 17:12 | Diagnostic Imaging Report ---
INDICATION: Left breast carcinoma. EXAMINATION: Patient was administered 27 mCi technetium 99m MDP intravenously and whole-body imaging was performed after a 3 hour delay. COMPARISON: No prior bone scans are available for comparison. FINDINGS: There is normal uptake of activity by the axial and appendicular skeleton. There is uptake by both kidneys with excretion to the urinary bladder. No abnormal foci of tracer accumulation is seen to suggest osseous metastatic disease. In particular, no uptake in the upper thoracic or upper lumbar spine is seen to account for the sclerotic foci on CT. IMPRESSION: No scintigraphic evidence of osseous metastatic disease. Dictated by: Dictated on workstation # [id number]
== END ==
LOC: RAD 10:44
PROVIDERS: ATTEND Surgery
DX: C50.912 Malignant neoplasm of unspecified site of left female breast (principal); M89.9 Disorder of bone, unspecified; K76.0 Fatty (change of) liver, not elsewhere classified
CPT/HCPCS: 36415; 71260; 74160; 78306; 82565; 84520

== ENCOUNTER 2018-06-25 13:41 | Outpatient (RCR) | payer MEDICARE, OTHER ==
[~2018-06-25 13:41] MED LIST changes: -CATHETER FLUSH 10 ML SYR IV PRN; -IOHEXOL 350 MG/ML 100 ML (OMNIPAQUE 350) VIAL IV ONE; -NS 100 ML (IVPB) BAG IV ONE
[2018-06-25 15:21] LABS: BASOPHILS # (AUTO) 0.1 10^3/uL (0.0-0.1); BASOPHILS % (AUTO) 1 % (0-10); EOSINOPHILS # (AUTO) 0.2 10^3/uL (0.0-0.3); EOSINOPHILS % (AUTO) 3 % (0-10); HEMATOCRIT 40 % (35-52); HEMOGLOBIN 12.6 G/DL (11.5-16.0); LYMPHOCYTES # (AUTO) 2.9 X 10^3 (1.0-4.0); LYMPHOCYTES % (AUTO) 32 % (12-44); MEAN CORPUSCULAR HEMOGLOBIN 25 PG (25-34); MEAN CORPUSCULAR HGB CONC 32 G/DL (32-36); MEAN CORPUSCULAR VOLUME 78 FL (80-99); MEAN PLATELET VOLUME 9.7 FL (7.4-10.4); MONOCYTES # (AUTO) 0.9 X 10^3 (0.0-1.0); MONOCYTES % (AUTO) 10 % (0-12); NEUTROPHILS # (AUTO) 4.9 X 10^3 (1.8-7.8); NEUTROPHILS % (AUTO) 54 % (42-75); PLATELET COUNT 317 10^3/uL (130-400); RED BLOOD COUNT 5.07 10^6/uL (4.35-5.85)
[2018-06-25 15:42] LABS: ALANINE AMINOTRANSFERASE 28 U/L (0-55); ALBUMIN 4.5 GM/DL (3.2-4.5); ALKALINE PHOSPHATASE 91 U/L (40-136); BILIRUBIN,TOTAL 0.4 MG/DL (0.1-1.0); BUN/CREATININE RATIO 23; CALCIUM 10.2 MG/DL (8.5-10.1); CARBON DIOXIDE 22 MMOL/L (21-32); CHLORIDE 106 MMOL/L (98-107); CREATININE SERUM 0.77 MG/DL (0.60-1.30); GFR ESTIMATED > 60; GLUCOSE 151 MG/DL (70-105); POTASSIUM 3.7 MMOL/L (3.6-5.0); SODIUM 138 MMOL/L (135-145); TOTAL PROTEIN 7.3 GM/DL (6.4-8.2)
== END 2018-07-05 | disposition home or self-care (01) ==
LOC: ONC 13:41
PROVIDERS: ATTEND Internal Medicine Hematology & Oncology
DX: C50.412 Malignant neoplasm of upper-outer quadrant of left female breast (principal); I10 Essential (primary) hypertension; E11.42 Type 2 diabetes mellitus with diabetic polyneuropathy; G47.33 Obstructive sleep apnea (adult) (pediatric); K21.9 Gastro-esophageal reflux disease without esophagitis; Z79.82 Long term (current) use of aspirin; Z87.891 Personal history of nicotine dependence; Z79.899 Other long term (current) drug therapy; Z90.710 Acquired absence of both cervix and uterus
CPT/HCPCS: 80053; 85025; 86300; 99214

== ENCOUNTER → 2018-09-19 | Outpatient (CLI) | payer MEDICARE, OTHER ==
[~2018-09-19] MED LIST changes: +BARIUM SUSPENSION 2.1% (VANILLA SILQ) 450 ML PO ONE; +CATHETER FLUSH 10 ML SYR IV PRN; +IOHEXOL 350 MG/ML 100 ML (OMNIPAQUE 350) VIAL IV ONE; +NS 250 ML (IVPB) BAG IV ONE; +RECEIVED CONTRAST (Hold Metformin) IV SCH
--- NOTE | 2018-09-19 11:11 | Diagnostic Imaging Report ---
PROCEDURE: CT chest and abdomen with contrast. TECHNIQUE: Multiple contiguous axial images were obtained through the chest and abdomen after the administration of intravenous contrast. INDICATION: Breast carcinoma, followup. COMPARISON: Correlation is made with prior CT from 06/20/2018. FINDINGS: CT CHEST: Small circumscribed low-density nodules in both lobes of the thyroid gland are again noted. Previously noted hematoma and postsurgical changes in the left breast have resolved. No axillary lymphadenopathy is seen. No internal mammary lymphadenopathy is detected. Previously noted AP window node is stable at 9 mm. Subcarinal fullness is stable. Annia are unremarkable. No pericardial or pleural fluid is detected. Centrilobular emphysematous changes are again noted. No parenchymal mass or nodule is detected. No infiltrate is seen. Small sclerotic foci of upper thoracic vertebral bodies appear stable. No new sclerotic foci are seen. IMPRESSION: Overall stable CT of the chest when compared with the examination from 06/20/2018. Mildly prominent mediastinal nodes are stable. No evidence of pulmonary metastatic disease is identified. CT ABDOMEN: Liver demonstrates generalized low density consistent with hepatic steatosis. No discrete liver mass is identified. Gallbladder is unremarkable. No biliary ductal dilatation is seen. The pancreas and spleen are unremarkable. No adrenal mass is detected. The kidneys are unremarkable. Aorta is calcified but non-aneurysmal. No central retroperitoneal or mesenteric lymphadenopathy is identified. The visualized bowel loops are normal in caliber. There is no ascites. Bony structures appear stable. IMPRESSION: Stable CT of the abdomen when compared with the exam from 06/20/2018. There are no findings to suggest abdominal metastatic disease. Dictated by: Dictated on workstation # [id number]
--- NOTE | 2018-09-19 14:36 | Diagnostic Imaging Report ---
INDICATION: Breast carcinoma. TECHNIQUE: The patient was administered 26.7 mCi of technetium 99m MDP intravenously and whole-body imaging was performed after a 3 hour delay. COMPARISON: Correlation is made with the prior whole body bone scan from 06/20/2018. FINDINGS: The bone scan remains unremarkable. No abnormal foci are seen to suggest osseous metastatic disease. There is normal activity within the kidneys with excretion into the urinary bladder. Normal uptake by the axial and appendicular skeleton is seen. IMPRESSION: Stable unremarkable whole body bone scan without evidence of osseous metastatic disease. Dictated by: Dictated on workstation # [id number]
== END ==
LOC: CARD 10:23
PROVIDERS: ATTEND Internal Medicine Hematology & Oncology
DX: Z01.89 Encounter for other specified special examinations (principal); C50.919 Malignant neoplasm of unspecified site of unspecified female breast
CPT/HCPCS: 71260; 74160; 78306

== ENCOUNTER → 2018-12-11 | Outpatient (CLI) | payer MEDICARE, OTHER ==
[~2018-12-11] MED LIST changes: -BARIUM SUSPENSION 2.1% (VANILLA SILQ) 450 ML PO ONE; -CATHETER FLUSH 10 ML SYR IV PRN; -IOHEXOL 350 MG/ML 100 ML (OMNIPAQUE 350) VIAL IV ONE; -NS 250 ML (IVPB) BAG IV ONE; -RECEIVED CONTRAST (Hold Metformin) IV SCH
--- NOTE | 2018-12-11 21:36 | Diagnostic Imaging Report ---
INDICATION: Left breast carcinoma. Correlation is made with prior mammograms from 04/16/2018, 01/08/2018, and 02/19/2014. 2-D and 3-D unilateral left diagnostic mammography was performed with computer-aided Detection (CAD) system. FINDINGS: Post lumpectomy changes in the left breast are noted. Left breast is heterogeneously dense, limiting the sensitivity of mammography. There are benign calcifications throughout the left breast. No discrete mass or malignant-appearing microcalcifications are seen. Left axilla is unremarkable. IMPRESSION: Post therapeutic changes in the left breast. No mammographic features suspicious for malignancy are identified. ACR BI-RADS Category 2: Benign findings. Result letter will be mailed to the patient. Note: At least 10% of breast cancer is not imaged by mammography. Dictated by: Dictated on workstation # [id number]
== END ==
LOC: RAD 12:31
PROVIDERS: ATTEND Internal Medicine Hematology & Oncology
DX: C50.412 Malignant neoplasm of upper-outer quadrant of left female breast (principal); Z98.890 Other specified postprocedural states

== ENCOUNTER 2018-12-16 12:45 | Outpatient (RCR) | payer MEDICARE, OTHER ==
[2018-09-19 10:24] LABS: BASOPHILS # (AUTO) 0.1 10^3/uL (0.0-0.1); BASOPHILS % (AUTO) 1 % (0-10); EOSINOPHILS # (AUTO) 0.3 10^3/uL (0.0-0.3); EOSINOPHILS % (AUTO) 3 % (0-10); HEMATOCRIT 43 % (35-52); HEMOGLOBIN 13.5 G/DL (11.5-16.0); LYMPHOCYTES # (AUTO) 3.2 X 10^3 (1.0-4.0); LYMPHOCYTES % (AUTO) 31 % (12-44); MEAN CORPUSCULAR HEMOGLOBIN 25 PG (25-34); MEAN CORPUSCULAR HGB CONC 32 G/DL (32-36); MEAN CORPUSCULAR VOLUME 81 FL (80-99); MEAN PLATELET VOLUME 9.3 FL (7.4-10.4); MONOCYTES # (AUTO) 0.9 X 10^3 (0.0-1.0); MONOCYTES % (AUTO) 8 % (0-12); NEUTROPHILS # (AUTO) 5.8 X 10^3 (1.8-7.8); NEUTROPHILS % (AUTO) 56 % (42-75); PLATELET COUNT 368 10^3/uL (130-400); RED CELL DISTRIBUTION WIDTH 17.5 % (10.0-14.5); WHITE BLOOD COUNT 10.3 10^3/uL (4.3-11.0)
[2018-09-19 10:41] LABS: ALANINE AMINOTRANSFERASE 23 U/L (0-55); ALBUMIN 4.5 GM/DL (3.2-4.5); ALKALINE PHOSPHATASE 101 U/L (40-136); BILIRUBIN,TOTAL 0.4 MG/DL (0.1-1.0); BUN/CREATININE RATIO 19; CALCIUM 10.4 MG/DL (8.5-10.1); CARBON DIOXIDE 20 MMOL/L (21-32); CHLORIDE 108 MMOL/L (98-107); CREATININE SERUM 0.83 MG/DL (0.60-1.30); GFR ESTIMATED > 60; GLUCOSE 127 MG/DL (70-105); POTASSIUM 4.8 MMOL/L (3.6-5.0); SODIUM 140 MMOL/L (135-145)
[2018-12-16 12:58] LABS: BASOPHILS # (AUTO) 0.1 10^3/uL (0.0-0.1); BASOPHILS % (AUTO) 1 % (0-10); EOSINOPHILS # (AUTO) 0.2 10^3/uL (0.0-0.3); EOSINOPHILS % (AUTO) 2 % (0-10); HEMATOCRIT 40 % (35-52); LYMPHOCYTES # (AUTO) 3.2 X 10^3 (1.0-4.0); LYMPHOCYTES % (AUTO) 35 % (12-44); MEAN CORPUSCULAR HEMOGLOBIN 26 PG (25-34); MEAN CORPUSCULAR HGB CONC 33 G/DL (32-36); MEAN CORPUSCULAR VOLUME 80 FL (80-99); MEAN PLATELET VOLUME 9.6 FL (7.4-10.4); MONOCYTES # (AUTO) 0.7 X 10^3 (0.0-1.0); MONOCYTES % (AUTO) 8 % (0-12); NEUTROPHILS # (AUTO) 4.8 X 10^3 (1.8-7.8); NEUTROPHILS % (AUTO) 54 % (42-75); PLATELET COUNT 317 10^3/uL (130-400); RED CELL DISTRIBUTION WIDTH 17.2 % (10.0-14.5)
[2018-12-16 13:24] LABS: ALANINE AMINOTRANSFERASE 28 U/L (0-55); ALBUMIN 4.3 GM/DL (3.2-4.5); ALKALINE PHOSPHATASE 96 U/L (40-136); BILIRUBIN,TOTAL 0.5 MG/DL (0.1-1.0); BUN/CREATININE RATIO 20; CALCIUM 9.7 MG/DL (8.5-10.1); CARBON DIOXIDE 22 MMOL/L (21-32); CHLORIDE 105 MMOL/L (98-107); CREATININE SERUM 0.87 MG/DL (0.60-1.30); GFR ESTIMATED > 60; GLUCOSE 182 MG/DL (70-105); POTASSIUM 3.7 MMOL/L (3.6-5.0); SODIUM 140 MMOL/L (135-145); TOTAL PROTEIN 7.2 GM/DL (6.4-8.2)
== END 2018-12-18 | disposition home or self-care (01) ==
LOC: ONC 12:45
PROVIDERS: ATTEND Internal Medicine Hematology & Oncology
DX: C50.412 Malignant neoplasm of upper-outer quadrant of left female breast (principal); I10 Essential (primary) hypertension; E11.42 Type 2 diabetes mellitus with diabetic polyneuropathy; G47.33 Obstructive sleep apnea (adult) (pediatric); K21.9 Gastro-esophageal reflux disease without esophagitis; Z79.82 Long term (current) use of aspirin; Z87.891 Personal history of nicotine dependence; Z79.899 Other long term (current) drug therapy; Z90.710 Acquired absence of both cervix and uterus
CPT/HCPCS: 36415; 80053; 85025; 99213

== ENCOUNTER 2019-03-18 12:57 | Outpatient (RCR) | payer MEDICARE, OTHER ==
[2019-03-18 13:15] LABS: BASOPHILS # (AUTO) 0.1 10^3/uL (0.0-0.1); BASOPHILS % (AUTO) 1 % (0-10); EOSINOPHILS # (AUTO) 0.2 10^3/uL (0.0-0.3); EOSINOPHILS % (AUTO) 2 % (0-10); HEMATOCRIT 41 % (35-52); HEMOGLOBIN 13.1 G/DL (11.5-16.0); LYMPHOCYTES # (AUTO) 2.7 X 10^3 (1.0-4.0); LYMPHOCYTES % (AUTO) 32 % (12-44); MEAN CORPUSCULAR HEMOGLOBIN 27 PG (25-34); MEAN CORPUSCULAR HGB CONC 32 G/DL (32-36); MEAN CORPUSCULAR VOLUME 83 FL (80-99); MEAN PLATELET VOLUME 9.6 FL (7.4-10.4); MONOCYTES # (AUTO) 0.7 X 10^3 (0.0-1.0); MONOCYTES % (AUTO) 8 % (0-12); NEUTROPHILS # (AUTO) 4.8 X 10^3 (1.8-7.8); NEUTROPHILS % (AUTO) 57 % (42-75); PLATELET COUNT 255 10^3/uL (130-400); RED CELL DISTRIBUTION WIDTH 17.2 % (10.0-14.5); WHITE BLOOD COUNT 8.4 10^3/uL (4.3-11.0)
[2019-03-18 13:32] LABS: ALBUMIN 4.3 GM/DL (3.2-4.5); BILIRUBIN,TOTAL 0.4 MG/DL (0.1-1.0); CALCIUM 10.3 MG/DL (8.5-10.1); CREATININE SERUM 0.93 MG/DL (0.60-1.30); POTASSIUM 4.5 MMOL/L (3.6-5.0); TOTAL PROTEIN 7.1 GM/DL (6.4-8.2)
== END 2019-06-13 12:18 | disposition home or self-care (01) ==
LOC: ONC 12:57
PROVIDERS: ATTEND Internal Medicine Hematology & Oncology
DX: C50.412 Malignant neoplasm of upper-outer quadrant of left female breast (principal); I10 Essential (primary) hypertension; E11.42 Type 2 diabetes mellitus with diabetic polyneuropathy; G47.33 Obstructive sleep apnea (adult) (pediatric); K21.9 Gastro-esophageal reflux disease without esophagitis; Z79.82 Long term (current) use of aspirin; Z87.891 Personal history of nicotine dependence; Z79.899 Other long term (current) drug therapy; Z90.710 Acquired absence of both cervix and uterus
CPT/HCPCS: 36415; 80053; 85025; 99213

== ENCOUNTER → 2019-06-19 | Outpatient (CLI) | payer MEDICARE, OTHER ==
[~2019-06-19] MED LIST changes: +CATHETER FLUSH 10 ML SYR IV PRN; +HOLD METFORMIN - RECEIVED CONTRAST 20 ML VIAL IV SCH; +IOHEXOL 350 MG/ML 100 ML (OMNIPAQUE 350) VIAL IV ONE; +NS 100 ML (IVPB) BAG IV ONE
[2019-06-19 10:59] LABS: BASOPHILS # (AUTO) 0.1 10^3/uL (0.0-0.1); BASOPHILS % (AUTO) 1 % (0-10); EOSINOPHILS # (AUTO) 0.2 10^3/uL (0.0-0.3); EOSINOPHILS % (AUTO) 2 % (0-10); HEMATOCRIT 42 % (35-52); HEMOGLOBIN 13.6 G/DL (11.5-16.0); LYMPHOCYTES # (AUTO) 2.6 X 10^3 (1.0-4.0); LYMPHOCYTES % (AUTO) 33 % (12-44); MEAN CORPUSCULAR HEMOGLOBIN 27 PG (25-34); MEAN CORPUSCULAR HGB CONC 32 G/DL (32-36); MEAN CORPUSCULAR VOLUME 84 FL (80-99); MONOCYTES # (AUTO) 0.8 X 10^3 (0.0-1.0); MONOCYTES % (AUTO) 10 % (0-12); NEUTROPHILS # (AUTO) 4.2 X 10^3 (1.8-7.8); NEUTROPHILS % (AUTO) 54 % (42-75); PLATELET COUNT 244 10^3/uL (130-400); RED CELL DISTRIBUTION WIDTH 16.9 % (10.0-14.5); WHITE BLOOD COUNT 7.8 10^3/uL (4.3-11.0)
[2019-06-19 11:23] LABS: ALANINE AMINOTRANSFERASE 28 U/L (0-55); ALBUMIN 4.3 GM/DL (3.2-4.5); ALKALINE PHOSPHATASE 91 U/L (40-136); BILIRUBIN,TOTAL 0.5 MG/DL (0.1-1.0); BUN/CREATININE RATIO 18; CALCIUM 9.7 MG/DL (8.5-10.1); CARBON DIOXIDE 22 MMOL/L (21-32); CHLORIDE 107 MMOL/L (98-107); CREATININE SERUM 0.78 MG/DL (0.60-1.30); GFR ESTIMATED > 60; GLUCOSE 166 MG/DL (70-105); POTASSIUM 4.2 MMOL/L (3.6-5.0); SODIUM 140 MMOL/L (135-145); TOTAL PROTEIN 7.2 GM/DL (6.4-8.2)
--- NOTE | 2019-06-19 12:39 | Diagnostic Imaging Report ---
PROCEDURE: CT chest and abdomen with contrast. TECHNIQUE: Multiple contiguous axial images were obtained through the chest and abdomen after the administration of intravenous contrast. Auto Exposure Controls were utilized during the CT exam to meet ALARA standards for radiation dose reduction. INDICATION: Breast carcinoma, followup. COMPARISON: Correlation is made with prior CT from 09/19/2018. FINDINGS: CT chest: Previously noted circumscribed nodules in bilateral thyroid lobes appear stable. Post-therapeutic changes in left breast are noted. No axillary lymphadenopathy is identified. No internal mammary lymphadenopathy is detected. Mildly prominent mediastinal lymph nodes appear stable. No hilar lymphadenopathy is detected. No pericardial or pleural fluid is detected. Lung flores demonstrate centrilobular emphysematous changes. There are some basilar interstitial changes. Central airways are patent. Small sclerotic foci in the upper thoracic vertebral bodies are stable and indeterminate. IMPRESSION: Stable CT chest since exam from 09/19/2018. CT abdomen: Hepatic steatosis is again noted. No liver mass is detected. The gallbladder is unremarkable. The pancreas and spleen are unremarkable. Left adrenal gland demonstrates slight nodularity to the lateral limb but this appears stable when compared with prior exam. No renal mass is detected. Aorta and iliac vessels are calcified but nonaneurysmal. Small lymph nodes in the central retroperitoneum are again noted. No pathologically enlarged abdominal lymphadenopathy is seen. Bony structures are nonacute. IMPRESSION: Stable CT abdomen when compared with 09/19/2018. No lymphadenopathy or metastatic disease is detected. Dictated by: Dictated on workstation # [id number]
--- NOTE | 2019-06-19 15:10 | Diagnostic Imaging Report ---
INDICATION: Left breast carcinoma. TECHNIQUE: Patient was administered 26.7 mCi of technetium-99m MDP intravenously and whole body imaging was performed after a three-hour delay. COMPARISON: Correlation is made with prior whole body bone scan from 09/19/2018. FINDINGS: Normal uptake of activity is seen throughout the axial and appendicular skeleton. There is uptake by the kidneys with excretion into the urinary bladder. No abnormal foci are identified to suggest osseous metastatic disease. IMPRESSION: Continued normal whole body bone scan. There is no scintigraphic evidence of osseous metastatic disease. Dictated by: Dictated on workstation # [id number]
--- NOTE | 2019-06-19 20:23 | Diagnostic Imaging Report ---
INDICATION: Routine screening. Patient has history of left breast carcinoma status post lumpectomy. Correlation is made with prior mammograms from 01/08/2018 and 02/19/2014. 2-D and 3-D bilateral diagnostic mammography was performed. The current study was also evaluated with a Computer Aided Detection (CAD) system. 3-D tomosynthesis was also performed and reviewed. FINDINGS: Both breasts are heterogeneously dense, limiting the sensitivity of mammography. Post lumpectomy changes in the upper left breast are noted. No discrete mass is seen. There are scattered benign calcifications. No malignant-appearing microcalcifications are seen. Benign nodular densities in the right breast are stable. Axillae are unremarkable. IMPRESSION: No mammographic features suspicious for malignancy are identified. ACR BI-RADS Category 2: Benign findings. Result letter will be mailed to the patient. Note: At least 10% of breast cancer is not imaged by mammography. Dictated by: Dictated on workstation # [id number]
== END ==
LOC: RAD 10:46
PROVIDERS: ATTEND Nurse Practitioner Adult Health
DX: C50.912 Malignant neoplasm of unspecified site of left female breast (principal); Z98.890 Other specified postprocedural states
CPT/HCPCS: 36415; 71260; 74160; 77066; 78306; 80053; 85025

== ENCOUNTER 2019-06-24 12:44 | Outpatient (RCR) | payer MEDICARE, OTHER ==
[~2019-06-24 12:44] MED LIST changes: -CATHETER FLUSH 10 ML SYR IV PRN; -HOLD METFORMIN - RECEIVED CONTRAST 20 ML VIAL IV SCH; -IOHEXOL 350 MG/ML 100 ML (OMNIPAQUE 350) VIAL IV ONE; -NS 100 ML (IVPB) BAG IV ONE
== END 2019-09-22 | disposition home or self-care (01) ==
LOC: ONC 12:44
PROVIDERS: ATTEND Internal Medicine Hematology & Oncology
DX: C50.412 Malignant neoplasm of upper-outer quadrant of left female breast (principal); I10 Essential (primary) hypertension; E11.42 Type 2 diabetes mellitus with diabetic polyneuropathy; G47.33 Obstructive sleep apnea (adult) (pediatric); K21.9 Gastro-esophageal reflux disease without esophagitis; Z79.82 Long term (current) use of aspirin; Z87.891 Personal history of nicotine dependence; Z79.899 Other long term (current) drug therapy; Z90.710 Acquired absence of both cervix and uterus
CPT/HCPCS: 99213

== ENCOUNTER 2019-09-25 13:24 | Outpatient (RCR) | payer MEDICARE, OTHER ==
[~2019-09-25 13:24] MED LIST changes: +SIMV40TA25 PO; -SIMV40TA4 PO
[2019-09-25 13:38] LABS: BASOPHILS # (AUTO) 0.1 10^3/uL (0.0-0.1); BASOPHILS % (AUTO) 1 % (0-10); EOSINOPHILS # (AUTO) 0.1 10^3/uL (0.0-0.3); EOSINOPHILS % (AUTO) 2 % (0-10); HEMATOCRIT 43 % (35-52); HEMOGLOBIN 14.2 G/DL (11.5-16.0); LYMPHOCYTES # (AUTO) 2.5 X 10^3 (1.0-4.0); LYMPHOCYTES % (AUTO) 33 % (12-44); MEAN CORPUSCULAR HEMOGLOBIN 28 PG (25-34); MEAN CORPUSCULAR HGB CONC 33 G/DL (32-36); MEAN CORPUSCULAR VOLUME 87 FL (80-99); MEAN PLATELET VOLUME 9.7 FL (7.4-10.4); MONOCYTES # (AUTO) 0.9 X 10^3 (0.0-1.0); MONOCYTES % (AUTO) 11 % (0-12); NEUTROPHILS # (AUTO) 4.2 X 10^3 (1.8-7.8); NEUTROPHILS % (AUTO) 54 % (42-75); PLATELET COUNT 212 10^3/uL (130-400); RED CELL DISTRIBUTION WIDTH 16.4 % (10.0-14.5); WHITE BLOOD COUNT 7.7 10^3/uL (4.3-11.0)
[2019-09-25 14:00] LABS: ALANINE AMINOTRANSFERASE 29 U/L (0-55); ALBUMIN 4.3 GM/DL (3.2-4.5); ALKALINE PHOSPHATASE 109 U/L (40-136); BILIRUBIN,TOTAL 0.5 MG/DL (0.1-1.0); BUN/CREATININE RATIO 17; CALCIUM 9.7 MG/DL (8.5-10.1); CARBON DIOXIDE 19 MMOL/L (21-32); CHLORIDE 108 MMOL/L (98-107); CREATININE SERUM 0.84 MG/DL (0.60-1.30); GFR ESTIMATED > 60; GLUCOSE 214 MG/DL (70-105); SODIUM 140 MMOL/L (135-145); TOTAL PROTEIN 7.2 GM/DL (6.4-8.2)
== END 2019-12-24 | disposition home or self-care (01) ==
LOC: ONC 13:24
PROVIDERS: ATTEND Internal Medicine Hematology & Oncology
DX: C50.412 Malignant neoplasm of upper-outer quadrant of left female breast (principal); I10 Essential (primary) hypertension; E11.42 Type 2 diabetes mellitus with diabetic polyneuropathy; G47.33 Obstructive sleep apnea (adult) (pediatric); K21.9 Gastro-esophageal reflux disease without esophagitis; Z79.82 Long term (current) use of aspirin; Z87.891 Personal history of nicotine dependence; Z79.899 Other long term (current) drug therapy; Z90.710 Acquired absence of both cervix and uterus
CPT/HCPCS: 36415; 80053; 85025; 99213

== ENCOUNTER → 2019-12-25 | Outpatient (CLI) | payer MEDICARE, OTHER ==
[2019-12-25 14:30] LABS: BASOPHILS % (AUTO) 1 % (0-10); EOSINOPHILS # (AUTO) 0.1 10^3/uL (0.0-0.3); EOSINOPHILS % (AUTO) 2 % (0-10); HEMATOCRIT 44 % (35-52); HEMOGLOBIN 14.9 G/DL (11.5-16.0); LYMPHOCYTES # (AUTO) 2.7 X 10^3 (1.0-4.0); LYMPHOCYTES % (AUTO) 32 % (12-44); MEAN CORPUSCULAR HEMOGLOBIN 29 PG (25-34); MEAN CORPUSCULAR HGB CONC 34 G/DL (32-36); MEAN CORPUSCULAR VOLUME 87 FL (80-99); MEAN PLATELET VOLUME 9.5 FL (7.4-10.4); MONOCYTES # (AUTO) 0.8 X 10^3 (0.0-1.0); MONOCYTES % (AUTO) 10 % (0-12); NEUTROPHILS # (AUTO) 4.6 X 10^3 (1.8-7.8); NEUTROPHILS % (AUTO) 56 % (42-75); PLATELET COUNT 248 10^3/uL (130-400); RED CELL DISTRIBUTION WIDTH 15.7 % (10.0-14.5); WHITE BLOOD COUNT 8.2 10^3/uL (4.3-11.0)
[2019-12-25 14:56] LABS: ALBUMIN 4.5 GM/DL (3.2-4.5); BILIRUBIN,TOTAL 0.4 MG/DL (0.1-1.0); CREATININE SERUM 1.01 MG/DL (0.60-1.30); POTASSIUM 3.9 MMOL/L (3.6-5.0); TOTAL PROTEIN 7.4 GM/DL (6.4-8.2)
== END ==
LOC: EDSTATUS 14:19 → ONC 14:21
PROVIDERS: ATTEND Internal Medicine Hematology & Oncology
DX: C50.412 Malignant neoplasm of upper-outer quadrant of left female breast (principal); I10 Essential (primary) hypertension; E11.42 Type 2 diabetes mellitus with diabetic polyneuropathy; G47.33 Obstructive sleep apnea (adult) (pediatric); K21.9 Gastro-esophageal reflux disease without esophagitis; Z79.82 Long term (current) use of aspirin; Z87.891 Personal history of nicotine dependence; Z79.899 Other long term (current) drug therapy; Z90.710 Acquired absence of both cervix and uterus
CPT/HCPCS: 80053; 85025; 99213

== ENCOUNTER → 2020-06-21 | Outpatient (CLI) | payer MEDICARE, OTHER ==
[~2020-06-21] MED LIST changes: +FENO145T26 PO; -FENO145T37 PO
--- NOTE | 2020-06-21 13:04 | Diagnostic Imaging Report ---
INDICATION: Left breast carcinoma status post lumpectomy. COMPARISON: Correlation is made with the prior mammograms from 06/19/2019 and 01/08/2018. TECHNIQUE: 2D and 3D bilateral diagnostic mammography was performed with CAD. FINDINGS: Both breasts remain heterogeneously dense, limiting the sensitivity of mammography. The overall parenchymal pattern is stable. No dominant mass or malignant appearing microcalcifications are seen. There are benign calcifications throughout both breasts. Lumpectomy changes of the left breast are stable. The axillae are unremarkable. IMPRESSION: No mammographic features suspicious for malignancy are identified. ACR BI-RADS Category 2: Benign findings. Result letter will be mailed to the patient. Note: At least 10% of breast cancer is not imaged by mammography. Dictated by: Dictated on workstation # [id number]
== END ==
LOC: RAD 12:32
PROVIDERS: ATTEND Internal Medicine Hematology & Oncology
DX: C50.412 Malignant neoplasm of upper-outer quadrant of left female breast (principal); Z98.890 Other specified postprocedural states
CPT/HCPCS: 77066; G0279; 77062

== ENCOUNTER → 2020-12-27 | Outpatient (CLI) | payer MEDICARE, OTHER ==
[2020-12-27 14:07] LABS: BASOPHILS # (AUTO) 0.1 10^3/uL (0.0-0.1); BASOPHILS % (AUTO) 1 % (0-10); EOSINOPHILS # (AUTO) 0.3 10^3/uL (0.0-0.3); EOSINOPHILS % (AUTO) 3 % (0-10); HEMATOCRIT 44 % (35-52); HEMOGLOBIN 14.5 g/dL (11.5-16.0); LYMPHOCYTES # (AUTO) 2.7 10^3/uL (1.0-4.0); LYMPHOCYTES % (AUTO) 33 % (12-44); MEAN CORPUSCULAR HEMOGLOBIN 30 pg (25-34); MEAN CORPUSCULAR HGB CONC 33 g/dL (32-36); MEAN CORPUSCULAR VOLUME 91 fL (80-99); MEAN PLATELET VOLUME 9.7 fL (9.0-12.2); MONOCYTES # (AUTO) 0.6 10^3/uL (0.0-1.0); MONOCYTES % (AUTO) 7 % (0-12); NEUTROPHILS # (AUTO) 4.6 10^3/uL (1.8-7.8); NEUTROPHILS % (AUTO) 55 % (42-75); PLATELET COUNT 250 10^3/uL (130-400); WHITE BLOOD COUNT 8.3 10^3/uL (4.3-11.0)
[2020-12-27 14:21] LABS: ALANINE AMINOTRANSFERASE 19 U/L (0-55); ALKALINE PHOSPHATASE 124 U/L (40-136); BILIRUBIN,TOTAL 0.4 MG/DL (0.1-1.0); BUN/CREATININE RATIO 20; CALCIUM 9.5 MG/DL (8.5-10.1); CARBON DIOXIDE 21 MMOL/L (21-32); CHLORIDE 107 MMOL/L (98-107); GFR ESTIMATED > 60; GLUCOSE 161 MG/DL (70-105); POTASSIUM 3.9 MMOL/L (3.6-5.0); SODIUM 138 MMOL/L (135-145)
== END ==
LOC: ONC 13:44
PROVIDERS: ATTEND Internal Medicine Hematology & Oncology
DX: Z12.31 Encounter for screening mammogram for malignant neoplasm of breast (principal); C50.412 Malignant neoplasm of upper-outer quadrant of left female breast
CPT/HCPCS: 80053; 85025; G0463; 99213

== ENCOUNTER → 2021-06-22 | Outpatient (CLI) | payer MEDICARE, OTHER ==
--- NOTE | 2021-06-23 11:25 | Diagnostic Imaging Report ---
Indication: Routine screening. Comparison is made with prior mammogram from 06/21/2020 and 06/19/2019. 2-D and 3-D bilateral screening mammography was performed with CAD. Both breasts are heterogeneously dense, limiting the sensitivity of mammography. The parenchymal and vascular calcifications throughout both breasts appears stable. Lumpectomy changes on the left are stable. No definite mass or malignant-appearing microcalcifications are seen. Axillae are unremarkable. IMPRESSION: BI-RADS Category 2 No mammographic features suspicious for malignancy are identified. ACR BI-RADS Category 2: Benign findings. Result letter will be mailed to the patient. Note: At least 10% of breast cancer is not imaged by mammography. Dictated by: Dictated on workstation # [id number]
== END ==
LOC: RAD 14:54
PROVIDERS: ATTEND Internal Medicine Hematology & Oncology
DX: Z12.31 Encounter for screening mammogram for malignant neoplasm of breast (principal); C50.919 Malignant neoplasm of unspecified site of unspecified female breast
CPT/HCPCS: 77063; 77067

== ENCOUNTER → 2021-06-28 | Outpatient (CLI) | payer MEDICARE, OTHER ==
[2021-06-28 14:00] LABS: BASOPHILS # (AUTO) 0.1 10^3/uL (0.0-0.1); BASOPHILS % (AUTO) 1 % (0-10); EOSINOPHILS # (AUTO) 0.3 10^3/uL (0.0-0.3); EOSINOPHILS % (AUTO) 4 % (0-10); HEMATOCRIT 45 % (35-52); HEMOGLOBIN 14.4 g/dL (11.5-16.0); LYMPHOCYTES # (AUTO) 2.5 10^3/uL (1.0-4.0); LYMPHOCYTES % (AUTO) 34 % (12-44); MEAN CORPUSCULAR HEMOGLOBIN 29 pg (25-34); MEAN CORPUSCULAR HGB CONC 32 g/dL (32-36); MEAN CORPUSCULAR VOLUME 92 fL (80-99); MEAN PLATELET VOLUME 9.3 fL (9.0-12.2); MONOCYTES # (AUTO) 0.7 10^3/uL (0.0-1.0); MONOCYTES % (AUTO) 10 % (0-12); NEUTROPHILS # (AUTO) 3.6 10^3/uL (1.8-7.8); NEUTROPHILS % (AUTO) 50 % (42-75); PLATELET COUNT 234 10^3/uL (130-400); WHITE BLOOD COUNT 7.3 10^3/uL (4.3-11.0)
[2021-06-28 14:20] LABS: ALBUMIN 4.1 GM/DL (3.2-4.5); BILIRUBIN,TOTAL 0.5 MG/DL (0.1-1.0); CALCIUM 9.9 MG/DL (8.5-10.1); CREATININE SERUM 0.79 MG/DL (0.60-1.30); POTASSIUM 3.8 MMOL/L (3.6-5.0); TOTAL PROTEIN 7.2 GM/DL (6.4-8.2)
== END ==
LOC: ONC 13:49
PROVIDERS: ATTEND Internal Medicine Hematology & Oncology
DX: C50.412 Malignant neoplasm of upper-outer quadrant of left female breast (principal); E66.9 Obesity, unspecified
CPT/HCPCS: 80053; 85025; G0463; 99213